=== PATIENT | female | born 1965 | race Caucasian/White ===

== ENCOUNTER → 2017-06-09 08:12 | Outpatient (CLI) | payer BC, SELFPAY ==
--- NOTE | 2017-06-09 06:49 | HPBI_ITS ---
MAMMOGRAPHY - BILATERAL SCREENING REASON FOR EXAM: Female, 51 years old. Routine annual screening examination. PERTINENT HISTORY: Non-contributory. TECHNIQUE: Digital bilateral breast edilberto (3D mammographic acquisition) in the CC and MLO projections. 2-D mediolateral oblique (MLO) and craniocaudad (CC) views of both breasts were obtained. CAD: Full Field Digital Mammography with Computer Added Detection was performed. COMPARISON: Comparison is made with prior study dated April 03, 2016 and February 21, 2015. FINDINGS: Breast Composition: There are scattered areas of fibroglandular density. There are no dominant masses or suspicious calcifications. Stable benign-appearing bilateral axillary lymph nodes. No other significant abnormalities are identified. There has been no significant change since the prior study. HPBI/SCREENING MAMM (CAD), BILAT IMPRESSION: Stable bilateral screening mammogram. Yearly follow-up mammogram recommended. (A) ASSESSMENT CATEGORY: BIRADS Category 2: Benign. A letter regarding these results will be sent to the patient by the facility within 30 days. Approximately 10% of breast cancers are not detected by mammography. A normal mammogram should not delay biopsy of a clinically suspicious abnormality. [id number] Electronically Signed: Wilbert Griffin MD at 9:04 EST Tel [phone], Service support ,
== END ==
PROVIDERS: Family Provider Family Medicine; PCP Family Medicine; Visit Provider Obstetrics & Gynecology
DX: Z12.31 Encounter for screening mammogram for malignant neoplasm of breast (principal)
CPT/HCPCS: 77063; 77067

== ENCOUNTER → 2017-09-04 07:12 | Outpatient (CLI) | payer BC, SELFPAY ==
[2017-09-04 08:14] LABS: Absolute Lymphocyte Count 0.83 X10^3/ul (0.83-4.51); Absolute Neutrophil Count 2.5 X10^3/uL (2.0-7.7); Basophil# 0.01 X10^3/uL; Basophil% 0.3 % (0-1); Eosinophil# 0.14 X10^3/uL; Eosinophils% 3.7 % (0-5); Hematocrit 36.1 % (37-47); Hemoglobin 11.7 g/dl (12.0-15.0); Lymphocyte # 0.83 X10^3/ul (4.0); Lymphocyte % 21.7 % (19-41); Mean Corp Hgb Conc 32.4 g/gl (32-36); Mean Corpuscular Hgb 28.5 pg (27.0-32.0); Mean Corpuscular Volume 87.8 fL (81-99); Mean Platelet Vol. 9.9 fl (6.2-12.0); Monocyte# 0.36 X10^3/uL; Monocyte% 9.4 % (0-10); Neutrophil # 2.49 X10^3/uL (2.7-7.7); Neutrophil % 64.9 % (47-70); Platelet Count 142 K/mm3 (150-450); RBC Distribution Width CV 13.4 % (11.6-14.6); RBC Distribution Width SD 43.2 fl (35.1-43.9); Red Blood Count 4.11 M/mm3 (4.2-5.4); White Blood Count 3.8 K/mm3 (4.4-11.0)
[2017-09-04 08:23] LABS: POSITIVE COUNT NO; POSITIVE DIFFERENTIAL NO; POSITIVE MORPHOLOGY NO
[2017-09-04 08:40] LABS: Cholesterol 136 mg/dL (200); Glucose 89 mg/dL (74-106); High Density Lipoprotein 41 mg/dL; Triglycerides 138 mg/dL; Very Low Density Lipoprotein 28 mg/dL (5-40)
== END ==
PROVIDERS: Family Provider Family Medicine; PCP Family Medicine; Visit Provider Family Medicine
DX: D69.6 Thrombocytopenia, unspecified (principal); Z13.1 Encounter for screening for diabetes mellitus; Z13.220 Encounter for screening for lipoid disorders
CPT/HCPCS: 36415; 80061; 82947; 85025

== ENCOUNTER 2018-05-23 09:27 | Emergency (ER) | payer BC, SELFPAY ==
[2018-05-23 09:28] VITALS: BP 135/73; PULSE 66; RESP 18; TEMP 36.6; O2SAT 100; BMI 25.7
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
--- NOTE | 2018-05-23 11:31 | ED.DEP ---
ED Disposition - Plan for ED Patient: Disposition: Home or Assisted Living Instructions: ED Sprain Strain Neck Prescriptions: Cyclobenzaprine [Flexeril] 10 mg PO TID PRN #20 tablet PRN Reason: Muscle Spasm Referrals: William Terry MD [Primary Care Provider] - 5-7 Days
[2018-05-23 11:59] VITALS: RESP 18
== END 2018-05-23 12:16 | disposition home or self-care (01) ==
PROVIDERS: Emergency Provider Emergency Medicine; Family Provider Family Medicine; PCP Family Medicine
DX: M62.838 Other muscle spasm (principal); D68.0 Von Willebrand disease; Z79.899 Other long term (current) drug therapy; V43.52XA Car driver injured in collision with other type car in traffic accident, initial encounter; Y93.I9 Activity, other involving external motion; Y92.410 Unspecified street and highway as the place of occurrence of the external cause; Y99.8 Other external cause status
CPT/HCPCS: 71046; 72040; 99283

== ENCOUNTER → 2018-09-27 | Outpatient (CLI) | payer BC, SELFPAY ==
[2018-09-30 11:49] LABS: HPV Reflexed? NOT INDICATED
== END | disposition home or self-care (01) ==
LOC: LABSPEC 09:07
PROVIDERS: Family Provider Family Medicine; PCP Family Medicine; Visit Provider Obstetrics & Gynecology
DX: Z12.4 Encounter for screening for malignant neoplasm of cervix (principal)
CPT/HCPCS: 88175; G0145

== ENCOUNTER → 2018-10-21 | Outpatient (CLI) | payer BC, SELFPAY ==
--- NOTE | 2018-10-21 08:09 | BI_ITS ---
MAMMOGRAPHY - BILATERAL SCREENING REASON FOR EXAM: Female, 53 years old. Routine annual screening examination. PERTINENT HISTORY: Non-contributory. TECHNIQUE: Digital bilateral breast yaniv (3D mammographic acquisition) in the CC and MLO projections. 2-D mediolateral oblique (MLO) and craniocaudad (CC) views of both breasts were obtained. CAD: Full Field Digital Mammography with Computer Added Detection was performed. COMPARISON: Comparison is made with prior study dated June 09, 2017 and April 03, 2016. FINDINGS: Breast Composition: There are scattered areas of fibroglandular density. There are no dominant masses or suspicious calcifications. No other significant abnormalities are identified. There has been no significant change since the prior study. BI/SCREEN MAMM (CAD) W/YANIV BILAT IMPRESSION: Stable bilateral screening mammogram. Yearly follow-up mammogram recommended. (A) ASSESSMENT CATEGORY: BIRADS Category 1: Negative. A letter regarding these results will be sent to the patient by the facility within 30 days. Approximately 10% of breast cancers are not detected by mammography. A normal mammogram should not delay biopsy of a clinically suspicious abnormality. [id number] Electronically Signed: Wilbert Griffin, at 9:54 EDT , Service support ,
== END | disposition home or self-care (01) ==
LOC: OPBI 08:06
PROVIDERS: Family Provider Family Medicine; PCP Family Medicine; Referring Provider Obstetrics & Gynecology; Visit Provider Obstetrics & Gynecology
DX: Z12.31 Encounter for screening mammogram for malignant neoplasm of breast (principal)
CPT/HCPCS: 77063; 77067

== ENCOUNTER → 2020-01-12 | Outpatient (CLI) | payer BC, SELFPAY ==
--- NOTE | 2020-01-12 07:22 | BI_ITS ---
MAMMOGRAPHY - BILATERAL SCREENING REASON FOR EXAM: Female, 54 years old. Routine annual screening examination. PERTINENT HISTORY: Non-contributory. TECHNIQUE: Digital bilateral breast yaniv (3D mammographic acquisition) in the CC and MLO projections. 2-D mediolateral oblique (MLO) and craniocaudad (CC) views of both breasts were obtained. CAD: Full Field Digital Mammography with Computer Added Detection was performed. COMPARISON: Comparison is made with prior examination dated 10/21/2018 and 06/09/2017. FINDINGS: Breast Composition: There are scattered areas of fibroglandular density. There are no dominant masses or suspicious calcifications. No other significant abnormalities are identified. There has been no significant change since the prior study. BI/SCREEN MAMM (CAD) W/YANIV BILAT IMPRESSION: Stable bilateral screening mammogram. Yearly follow-up mammogram recommended. (A) ASSESSMENT CATEGORY: BIRADS Category 1: Negative. A letter regarding these results will be sent to the patient by the facility within 30 days. Approximately 10% of breast cancers are not detected by mammography. A normal mammogram should not delay biopsy of a clinically suspicious abnormality. [id number] Electronically Signed: Wilbert Griffin, at 13:12 EDT , Service support ,
== END | disposition home or self-care (01) ==
LOC: OPBI 07:20
PROVIDERS: PCP Family Medicine; Referring Provider Student in an Organized Health Care Education/Training Program; Visit Provider Student in an Organized Health Care Education/Training Program
DX: Z12.31 Encounter for screening mammogram for malignant neoplasm of breast (principal)
CPT/HCPCS: 77063; 77067

== ENCOUNTER → 2020-01-19 | Outpatient (CLI) | payer BC, SELFPAY ==
--- NOTE | 2020-01-19 10:45 | CER_PTH ---
PATIENT: NETTIE NIEVES LOC: [facility] U#:[id number] AGE/SX: 54/F ROOM: RE01/19/[address]: Dr. Amber Farr DO : 1965 BED: DIS: 01/19/2020 SPEC #: [id number] RECD: 01/22/20 07:26 STATUS: NGHIA ANNELISE #: [id number] OLEKSANDR: 01/19/20 10:[address]: Amber Farr DEPT: SURGICAL PATHOLOGY RECD BY: Tylor Brambila ENTERED: 01/22/20 07:26 SP TYPE: CERV OTHR DR: Dr. William Terry MD Tissues: Uterine cervix, NOS Procedures: Surgery Specimen Level IV HEADER OPERATION: Removed cervical polyp PRE-OP DIAGNOSIS: Cervical polyp TISSUE SUBMITTED: Cervical polyp MICROSCOPIC DIAGNOSIS Cervical polyp, biopsy: Benign endocervical polyp. AM:armando 01/23/20 MICROSCOPIC DESCRIPTION Slides are reviewed. GROSS DESCRIPTION Received in fixative is one container labeled with the patient's name and designated cervical polyp. The specimen consists of one irregular fragment of light hernandez soft tissue that measures 0.5 x 0.2 x 0.1 cm. The specimen is totally submitted in one cassette. / AM:armando 01/22/20 TC:5 CPT: 87169
== END | disposition home or self-care (01) ==
LOC: LABSPEC 13:03
PROVIDERS: PCP Family Medicine; Visit Provider Student in an Organized Health Care Education/Training Program
DX: N84.1 Polyp of cervix uteri (principal)
CPT/HCPCS: 88305

== ENCOUNTER → 2021-02-07 10:51 | Outpatient (CLI) | payer OTHER, SELFPAY ==
--- NOTE | 2021-02-07 10:57 | RAD_ITS ---
STUDY: X-RAY CHEST REASON FOR EXAM: Female, 55 years old. COVID/ COUGHING TECHNIQUE: PA and lateral views of the chest. COMPARISON: 05/23/2018 FINDINGS: Left and right lower lung patchy opacities. There is no demonstrated pleural abnormality. Normal size heart. Normal mediastinum and lam. Normal visualized pulmonary arteries. Normal visualized aortic arch and descending thoracic aorta. There is no demonstrated abnormality of the visualized soft tissue structures of the upper abdomen. RAD/Chest PA and Lateral IMPRESSION: Bilateral lower lung pneumonia. Electronically Signed: Chin Campos MD at 4:04 EDT Tel , Service support ,
== END ==
PROVIDERS: PCP Family Medicine; Referring Provider Family Medicine; Visit Provider Family Medicine
DX: R91.8 Other nonspecific abnormal finding of lung field (principal); R07.89 Other chest pain
CPT/HCPCS: 71046

== ENCOUNTER → 2021-02-13 12:41 | Outpatient (CLI) | payer OTHER, SELFPAY ==
[2021-02-20 16:31] LABS: HPV APTIMA, High Risk Negative (Negative)
== END ==
PROVIDERS: PCP Family Medicine; Visit Provider Student in an Organized Health Care Education/Training Program
DX: Z12.4 Encounter for screening for malignant neoplasm of cervix (principal)
CPT/HCPCS: 87624; 88175; G0145

== ENCOUNTER → 2021-03-21 09:16 | Outpatient (CLI) | payer OTHER, SELFPAY ==
--- NOTE | 2021-03-21 09:18 | RAD_ITS ---
STUDY: X-RAY CHEST REASON FOR EXAM: Female, 55 years old. BILATERAL PNEUMONIA TECHNIQUE: PA and lateral views of the chest. COMPARISON: 02/07/2021 FINDINGS: The lungs are clear and expanded. There is no demonstrated pleural abnormality. Normal size heart. Normal mediastinum and lam. Normal visualized pulmonary arteries. Normal visualized aortic arch and descending thoracic aorta. Normal visualized thoracic spine. Normal visualized ribs, clavicles, and shoulders. There is no demonstrated abnormality of the visualized soft tissue structures of the upper abdomen. RAD/Chest PA and Lateral IMPRESSION: Resolution of bilateral lower lobe pneumonia seen on prior study. Electronically Signed: Bethel Mckee MD ([place]) at 22:34 EST , Service support ,
== END ==
PROVIDERS: PCP Family Medicine; Referring Provider Family Medicine; Visit Provider Family Medicine
DX: J18.9 Pneumonia, unspecified organism (principal)
CPT/HCPCS: 71046

== ENCOUNTER 2021-06-23 07:11 | Outpatient (CLI) | payer BC, SELFPAY ==
--- NOTE | 2021-06-23 07:15 | BI_ITS ---
MAMMOGRAPHY - BILATERAL SCREENING REASON FOR EXAM: Female, 55 years old. Routine annual screening examination. PERTINENT HISTORY: Non-contributory. TECHNIQUE: Digital bilateral breast yaniv (3D mammographic acquisition) in the CC and MLO projections. 2-D mediolateral oblique (MLO) and craniocaudad (CC) views of both breasts were obtained. CAD: Full Field Digital Mammography with Computer Added Detection was performed. COMPARISON: Comparison is made with prior study of 01/12/2020 and 10/21/2018. FINDINGS: Breast Composition: There are scattered areas of fibroglandular density. There are no dominant masses or suspicious calcifications. Stable small benign appearing bilateral axillary lymph nodes. No other significant abnormalities are identified. There has been no significant change since the prior study. BI/SCRN MAMM (CAD)W/YANIV BILAT IMPRESSION: Stable bilateral screening mammogram. Yearly follow-up mammogram recommended. (A) ASSESSMENT CATEGORY: BIRADS Category 1: Negative. A letter regarding these results will be sent to the patient by the facility within 30 days. Approximately 10% of breast cancers are not detected by mammography. A normal mammogram should not delay biopsy of a clinically suspicious abnormality. [id number] Electronically Signed: Wilbert Griffin MD at 8:10 EST ,
== END 2021-06-23 23:59 | disposition home or self-care (01) ==
LOC: OPBI 07:12
PROVIDERS: PCP Family Medicine; Visit Provider Student in an Organized Health Care Education/Training Program
DX: Z12.31 Encounter for screening mammogram for malignant neoplasm of breast (principal)
CPT/HCPCS: 77063; 77067

== ENCOUNTER → 2021-12-19 | Outpatient (CLI) | payer BC, SELFPAY ==
[2021-12-19 12:09] LABS: Absolute Lymphocyte Count 1.05 X10^3/uL (0.83-4.51); Absolute Neutrophil Count 2.5 X10^3/uL (2.0-7.7); Basophil# 0.02 X10^3/uL; Basophil% 0.5 % (0-1); Eosinophil# 0.09 X10^3/uL; Eosinophils% 2.2 % (0-5); Hematocrit 38.1 % (37-47); Hemoglobin 12.6 g/dL (12.0-15.0); Lymphocyte # 1.05 X10^3/ul (0.83-4.51); Lymphocyte % 26.1 % (19-41); Mean Corp Hgb Conc 33.1 g/dL (32-36); Mean Corpuscular Hgb 29.4 pg (27.0-32.0); Mean Corpuscular Volume 88.8 fL (81-99); Mean Platelet Vol. 10.8 fl (6.2-12.0); Monocyte# 0.33 X10^3/uL; Monocyte% 8.2 % (0-10); NRBC Flagged by Analyzer 0 % (0-5); Neutrophil # 2.52 X10^3/uL (2.7-7.7); Neutrophil % 62.5 % (47-70); Platelet Count 170 K/mm3 (150-450); RBC Distribution Width CV 13.1 % (11.6-14.6); RBC Distribution Width SD 42.2 fl (35.1-43.9); Red Blood Count 4.29 M/mm3 (4.2-5.4)
[2021-12-19 12:58] LABS: ALB/GLOB Ratio 1.2 RATIO (0.9-2.4); AST(SGOT) 22 U/L (15-37); Alanine Aminotransfer ALT/SGPT 31 U/L (13-56); Alkaline Phosphatase 68 U/L (45-117); Anion Gap 8 (5-15); BUN 14 mg/dL (7-18); Chloride 104 mmol/L (98-107); Cholesterol 180 mg/dL (200); Creatinine, Serum 0.78 mg/dL (0.55-1.02); EST Glomerular Filtration Rate 82 mL/min (>60); Est Glom Filt Rate - Afr Amer 99 mL/min (>60); Globulin 3.4 g/dL (2.2-4.2); Glucose 81 mg/dL (74-106); High Density Lipoprotein 48 mg/dL; Potassium 3.9 mmol/L (3.5-5.1); Protein, Total 7.4 g/dL (6.4-8.2); Sodium Level 140 mmol/L (136-145); Triglycerides 125 mg/dL; Very Low Density Lipoprotein 25 mg/dL (5-40)
== END | disposition home or self-care (01) ==
LOC: MTLAB 10:14
PROVIDERS: PCP Family Medicine; Referring Provider Family Medicine; Visit Provider Family Medicine
DX: Z00.00 Encounter for general adult medical examination without abnormal findings (principal); D61.818 Other pancytopenia; E78.5 Hyperlipidemia, unspecified; Z83.3 Family history of diabetes mellitus
CPT/HCPCS: 36415; 80053; 80061; 85025

== ENCOUNTER → 2022-06-29 | Outpatient (CLI) | payer BC, SELFPAY ==
--- NOTE | 2022-06-29 07:28 | BI_ITS ---
MAMMOGRAPHY - BILATERAL SCREENING 3-D TOMOSYNTHESIS REASON FOR EXAM: Female, 56 years old. Routine screening PERTINENT HISTORY: No significant family history. TECHNIQUE: 2-D mammograms and 3-D Tomosynthesis of the breast (s) were performed. CAD was performed. COMPARISON: 06/23/2021, 01/12/2020 FINDINGS: The breast composition is almost entirely fat. Scattered benign calcifications are seen. No dense spiculated masses or suspicious microcalcifications are identified. No architectural distortion is identified. There is no skin thickening or retraction. There has been no significant change since the prior study. BI/SCRN MAMM (CAD)W/YANIV BILAT IMPRESSION: No mammographic signs of malignancy. Routine yearly mammograms recommended. ASSESSMENT CATEGORY: BIRADS Category 1: Negative. A letter regarding these results will be sent to the patient by the facility within 30 days. FOLLOW UP RECOMMENDATION: Yearly follow up mammogram recommended. (A) Approximately 10% of breast cancers are not detected by mammography. A normal mammogram should not delay biopsy of a clinically suspicious abnormality. Electronically Signed: Waqas Hansen MD at 8:57 EDT ,
== END | disposition home or self-care (01) ==
LOC: OPBI 07:25
PROVIDERS: PCP Internal Medicine; Visit Provider Student in an Organized Health Care Education/Training Program
DX: Z12.31 Encounter for screening mammogram for malignant neoplasm of breast (principal)
CPT/HCPCS: 77063; 77067

== ENCOUNTER → 2022-09-15 | Outpatient (CLI) | payer BC, SELFPAY ==
--- NOTE | 2022-09-15 14:26 | BD_ITS ---
STUDY: DUAL ENERGY X-RAY ABSORPTIOMETRY / DXA REASON FOR EXAM: Female, 57 years old. 627.8Menopausal postmenopausal BONE DENSITY REASON FOR EXAM TECHNIQUE: Bone Mineral Density (BMD) measurements of lumbar spine and bilateral hips were obtained. COMPARISON: None. FINDINGS: Lumbar Spine (L1-L4): g/cm2 (0.847) / T-score (-1.8) / Z-score (-0.7) Findings are suggestive of osteopenia with a moderate fracture risk. Left Femur Total: g/cm2 (0.705) / T-score (-1.9) / Z-score (-1.2) Left Femoral Neck: g/cm2 (0.642) / T-score (-1.9) / Z-score (-0.8) Right Femur Total: g/cm2 (0.758) / T-score (-1.5) / Z-score (-0.8) Right Femoral Neck: g/cm2 (0.645) / T-score (-1.8) / Z-score (-0.7) BD/Dexa Bone Density Study IMPRESSION: The patient is considered osteopenic as outlined below according to World Robert Organization (WHO) criteria with a moderate fracture risk. Reference Information: The T-score is the number of standard deviations above or below the standard which is normal for young adults at their peak bone mineral density. The World Health Organization (WHO) interprets the T-scores as follows: Above -1 Normal bone density Between -1 and -2.5 Osteopenia Equal to / or below -2.5 Osteoporosis As a practical clinical guideline, osteopenia may be graded as follows: Mild -1 through -1.5 Moderate -1.6 through -2.0 Severe -2.1 through -2.4 The Z-score is the number of standard deviations above or below age-matched controls. A Z-score of less than -1.5 would be considered abnormal. References: 1. NIH Osteoporosis and Related Bone Diseases www osteo.org 2. International Society for Clinical Densitometry www iscd.org 3. National Osteoporosis Foundation www nof.org Electronically Signed: Wilbert Griffin MD at 9:09 EDT ,
== END | disposition home or self-care (01) ==
LOC: OPBD 14:19
PROVIDERS: PCP Internal Medicine; Referring Provider Internal Medicine; Visit Provider Internal Medicine
DX: Z78.0 Asymptomatic menopausal state (principal)
CPT/HCPCS: 77080

== ENCOUNTER → 2022-12-26 | Outpatient (CLI) | payer BC, SELFPAY ==
--- NOTE | 2022-12-26 09:07 | RAD_ITS ---
EXAM: XR CHEST, 2 VIEWS CLINICAL INDICATION: CHEST PAIN TECHNIQUE: Frontal and lateral views of the chest. COMPARISON: 03/21/2021. FINDINGS: LUNGS AND PLEURAL SPACES: Unremarkable. No consolidation or edema. No pneumothorax. No effusion. HEART: Unremarkable. Cardiac silhouette not enlarged. MEDIASTINUM: Central airways and mediastinal contour are unremarkable. BONES/JOINTS: Unremarkable. SOFT TISSUES: Unremarkable. RAD/Chest PA and Lateral IMPRESSION: No radiographic evidence of acute cardiopulmonary disease and unchanged when compared to 03/21/2021. Electronically Signed: Hunter Rodriguez MD at 9:19 EDT ,
== END | disposition home or self-care (01) ==
LOC: RAD 09:04
PROVIDERS: PCP Internal Medicine; Referring Provider Internal Medicine; Visit Provider Internal Medicine
DX: R07.89 Other chest pain (principal)
CPT/HCPCS: 71046

== ENCOUNTER → 2023-09-21 | Outpatient (CLI) | payer BC, SELFPAY ==
--- NOTE | 2023-09-21 12:27 | BI_ITS ---
MAMMOGRAPHY - BILATERAL SCREENING REASON FOR EXAM: Female, 58 years old. Routine annual screening examination. PERTINENT HISTORY: Non-contributory. TECHNIQUE: Digital bilateral breast yaniv (3D mammographic acquisition) in the CC and MLO projections. 2-D mediolateral oblique (MLO) and craniocaudad (CC) views of both breasts were obtained. CAD: Full Field Digital Mammography with Computer Added Detection was performed. COMPARISON: Comparison is made with prior study dated June 29, 2022 and June 23, 2021. FINDINGS: Breast Composition: There are scattered areas of fibroglandular density. There are no dominant masses or suspicious calcifications. Stable bilateral fat-containing axillary lymph nodes. No other significant abnormalities are identified. There has been no significant change since the prior study. BI/SCRN MAMM (CAD)W/YANIV BILAT IMPRESSION: Stable bilateral screening mammogram. Yearly follow-up mammogram recommended. (A) ASSESSMENT CATEGORY: BIRADS Category 2: Benign. A letter regarding these results will be sent to the patient by the facility within 30 days. Approximately 10% of breast cancers are not detected by mammography. A normal mammogram should not delay biopsy of a clinically suspicious abnormality. [id number] Electronically Signed: Wilbert Griffin MD at 13:18 EDT ,
== END | disposition home or self-care (01) ==
LOC: OPBI 12:27
PROVIDERS: PCP Internal Medicine; Referring Provider Internal Medicine; Visit Provider Internal Medicine
DX: Z12.31 Encounter for screening mammogram for malignant neoplasm of breast (principal)
CPT/HCPCS: 77063; 77067

== ENCOUNTER → 2024-10-03 | Outpatient (CLI) | payer BC, SELFPAY ==
--- NOTE | 2024-10-03 07:00 | BI_ITS ---
EXAM: SCRN MAMM (CAD)W/YANIV BILAT DATE: 10/03/2024 CLINICAL HISTORY: F, Age 59 y/o , MALIGNANT NEOPLASM OF BREAST No family history. BREAST CANCER RISK ASSESSMENT: Not assessed. TECHNIQUE: Bilateral screening digital breast tomosynthesis with 2D and 3D images. Computer aided detection. COMPARISON: Prior exam(s) dated September 21, 2023.. FINDINGS: TISSUE DENSITY: The breast tissue is composed of scattered areas of fibroglandular density. Bilateral Breast Mammographic Findings: No significant masses, calcifications or other abnormalities are identified. No suspicious masses, areas of developing architectural distortion, or suspicious calcifications. There has been no significant interval change. BI/SCRN MAMM (CAD)W/YANIV BILAT IMPRESSION: Stable examination. OVERALL FINAL ASSESSMENT BI-RADS 1: NEGATIVE. RECOMMEND ANNUAL MAMMOGRAPHIC SCREENING. RECOMMENDATION: Routine annual follow-up in 1 Year A letter with findings and recommendations will be mailed to the patient. Reading Location: [place] [id number]
--- OUTSIDE RECORDS SUMMARY | 2024-10-03 07:01 | XMS RPT_ITS | CCD ---
Author Organization [facility] Care Team Providers Care Bricklayer Name Role Phone Nayla Porter MD Unavailable Fast DO, Yasmine A Unavailable Fast DO, Yasmine A Unavailable Fatou Lopez Unavailable Unavailable Jaye [employer], Tuyet Unavailable Unavailable Mindy Tyler Unavailable Unavailable Unavailable Slafaisal ZABALAN, Jaja Unavailable Unavailable Nayla Porter MD Attending Unavailable Nayla Porter MD Referring Unavailable Nayla Porter MD Consulting Unavailable Dania Rutherford MA Unavailable Unavailable Unavailable Unavailable Nayla Porter MD Primary Care Provider [phone] NAYLA PORTER Referring Unavailable NAYLA PORTER Primary Care Unavailable Nayla Porter Attending Unavailable Nayla Porter Primary Care Unavailable Nayla Porter Referring Unavailable Nayla Porter Attending Unavailable Nayla Porter Primary Care Unavailable Allergies Allergy Classification Reported Allergen(s) Allergy Type Date of Onset Reaction(s) Facility (20 sources) Penicillins; Translations: [Penicillins] Allergy to substance (finding) 9 Hives [facility] Work Phone: (8 sources) Tetanus immune globulin Drug Allergy [facility] Work Phone: Comment on above: hives (1 source) ALLERGIES NOT ON FILE; Translations: [ALLERGIES NOT ON FILE] Propensity to adverse reactions (disorder) [facility] 2 Repository Medications Current Medications Medication Drug Class(es) Dates Sig (Normalized) Sig (Original) cyclobenzaprine hydrochloride 10 mg oral tablet (2 sources) Muscle Relaxant Start: 05-23-2018 take 10 mg by mouth three times daily Cyclobenzaprine Active 10 MG PO THREE TIMES A DAY May 23, 2018 1:00am travoprost 0.04 mg/ml ophthalmic solution (19 sources) Prostaglandin Analog Start: 05-23-2018 take 1 drop(s) into the eye(s) at bedtime Travoprost (Travatan Z) 1 DROP bottle Active 1 DRP Each Eye AT BEDTIME May 23, 2018 1:00am travoprost (chelsea alkonium) 0.004 % eye drops (ophthalmic (eye)) daily (0.004 %) Active Completed/Discontinued Medications Medication Drug Class(es) Dates Sig (Normalized) Sig (Original) [id number] 200 actuat albuterol 0.09 mg/actuat metered dose inhaler (17 sources) beta2-Adrenergic Agonist Start: 08-27-2008 End: 06-09-2022 Proventil HFA 90 mcg/actuation inhalation HFA Aerosol with Adapter 2 (two) Aerosol Soln qid prn for 0 days Quantity: 1 {Aerosol_Soln} Refills: 3 Ordered: 09-Jun-2022 Tuyet Cee LPN Start : 27-Aug-2008 End : 09-Jun-2022 Inactive Alive Diabetic Multivitamin 120-100 mcg oral tablet (17 sources) take 1 tablet by mouth once daily Alive Diabetic Multivitamin 120-100 mcg oral tablet daily (120-100 mcg) Active bifidobacterium infantis 4 mg oral capsule (17 sources) take 1 mg by mouth once daily Align 4 mg oral capsule daily (4 mg) Active busPIRone hydrochloride 5 mg oral tablet (17 sources) Start: 07-03-2008 End: 06-09-2022 take 1 tablet by mouth twice daily BuSpar 5 mg oral tablet 1 (one) Tablet bid for 0 days Quantity: 60 {Tablet} Refills: 2 Ordered: 09-Jun-2022 Tuyet Cee LPN Start : 03-Jul-2008 End : 09-Jun-2022 Discontinued calcium citrate 1500 mg / cholecalciferol 200 unt oral tablet (5 sources) Vitamin D Start: 10-02-2022 take 1 tablet by mouth twice daily calcium citrate-vitamin D3 315 mg-5 mcg (200 unit) oral tablet 1 Tablet bid for 0 days Quantity: 30 {Tablet} Refills: 0 Ordered: 08-Jan-2023 Sangeeta ENAMORADODania Start : 02-Oct-2022 Active codeine phosphate 2 mg/ml / guaiFENesin 20 mg/ml oral solution (17 sources) Opioid Agonist Start: 06-08-2007 End: 01-30-2008 GUAIATUSSIN AC, 100-10MG/5ML (Oral Syrup) 1 Syrup 1 tsp tid as needed for coug for 0 days Quantity: 6 {Ounce(s)} Refills: 0 Ordered: 08-Jun-2007 Yaa Richard Start : 08-Jun-2007 End : 30-Jan-2008 Inactive Comments: Medication taken as needed. Comment on above: Medication taken as needed. FLUoxetine 20 mg oral tablet (20 sources) Serotonin Reuptake Inhibitor Start: 01-08-2023 take 1 tablet by mouth once daily FLUoxetine 20 mg oral tablet 1 (one) Tablet qd for 0 days Quantity: 30 {Tablet} Refills: 6 Ordered: 08-Jan-2023 Carl ABDULLAHI, Nayla Porter MD, Nayla Dominique Start : 08-Jan-2023 Active Start: 08-21-2022 take 1 tablet by deidra th once daily FLUoxetine 20 mg oral tablet 1 (one) Tablet qd for 0 days Quantity: 30 {Tablet} Refills: 3 Ordered: 21-Aug-2022 Jaja Villa LPN Start : 21-Aug-2022 Active Start: 06-09-2022 take 1 tablet by deidra th once daily FLUoxetine 20 mg oral tablet 1 (one) Tablet qd for 0 days Quantity: 30 {Tablet} Refills: 3 Ordered: 09-Jun-2022 Carl ABDULLAHI, Nayla Porter MD, Nayla Dominique Start : 09-Jun-2022 Active Start: 05-23-2018 take 20 mg by mouth once daily Fluoxetine Active 20 MG PO DAILY May 23, 2018 1:00am Start: 09-24-2006 End: 03-03-2007 take 1 tablet by mouth once daily FLUOXETINE HCL, 20MG (Oral Tablet) 1 Tablet qd for 0 days Quantity: 30 {Tablet} Refills: 3 Ordered: 24-Sep-2006 Yaa Richard Start : 24-Sep-2006 End : 03-Mar-2007 Discontinued inositol 100 mg / niacin 400 mg oral capsule (17 sources) Nicotinic Acid Start: 01-25-2007 End: 01-30-2008 take 1 capsule by mouth once daily at bedtime NIACIN FLUSH FREE, 500MG (Oral Capsule) 1 (one) Capsule qhs / HS for 0 days Refills: 0 Ordered: 25-Jan-2007 Yaa Richard Start : 25-Jan-2007 End : 30-Jan-2008 Inactive lansoprazole 30 mg delayed release oral capsule (17 sources) Proton Pump Inhibitor Start: 11-24-2006 End: 01-30-2008 take 1 capsule by mouth once daily PREVACID, 30MG (Oral Capsule Delayed Release) 1 (one) Capsule DR qd for 0 days Refills: 0 Ordered: 24-Nov-2006 Yaa Richard Start : 24-Nov-2006 End : 30-Jan-2008 Inactive latanoprost 0.05 mg/ml ophthalmic solution (17 sources) Prostaglandin Analog End: 06-09-2022 take 2.5 mL into the eye(s) at bedtime Xalatan 0.005 % ophthalmic (eye) drops 2.5ml. each eye at bedtime for 0 days Refills: 0 Ordered: 09-Jun-2022 Tuyet Cee LPN End : 09-Jun-2022 Inactive levoFLOXacin 500 mg oral tablet (17 sources) Quinolone Antimicrobial Start: 06-08-2007 End: 09-30-2007 take 1 tablet by mouth once daily LEVAQUIN, 500MG (Oral Tablet) 1 Tablet daily for 10 days Quantity: 10 {Tablet} Refills: 0 Ordered: 08-Jun-2007 Yaa Richard Start : 08-Jun-2007 End : 30-Sep-2007 Inactive methylPREDNISolone 4 mg oral tablet (3 sources) Corticosteroid Start: 01-08-2023 take 1 tablet by mouth once Medrol (Kings) 4 mg oral Tablet, Dose Pack 1 (one) tablet as directed per instructions for 0 days Quantity: 1 {Packet} Refills: 0 Ordered: 08-Jan-2023 Carl ABDULLAHI, Nayla Porter MD, Nayla Dominique Start : 08-Jan-2023 Active metroNIDAZOLE 0.01 mg/mg topical gel (17 sources) Nitroimidazole Antimicrobial End: 01-25-2007 METROGEL, 1% (External Gel) 1 QD for 0 days Refills: 0 Ordered: 30-Jan-2008 Yaa Richard End : 25-Jan-2007 Discontinued mometasone furoate 0.05 mg/actuat metered dose nasal spray (17 sources) Corticosteroid Start: 04-02-2009 End: 06-09-2022 Nasonex 50 mcg/actuation intranasal spray, non-aerosol 2 (two) Suspension qd for 0 days Refills: 0 Ordered: 09-Jun-2022 Tuyet Cee LPN Start : 02-Apr-2009 End : 09-Jun-2022 Discontinued montelukast 10 mg oral tablet (17 sources) Leukotriene Receptor Antagonist Start: 03-03-2007 End: 01-30-2008 take 1 tablet by mouth once daily SINGULAIR, 10MG (Oral Tablet) Tablet QD for 0 days Refills: 0 Ordered: 30-Jan-2008 Yaa Richard Start : 03-Mar-2007 End : 30-Jan-2008 Inactive Multi Vitamin 9 mg iron/15 mL oral liquid (17 sources) End: 06-09-2022 Multi Vitamin 9 mg iron/15 mL oral liquid for 0 days Refills: 0 Ordered: 09-Jun-2022 Tuyet Cee LPN End : 09-Jun-2022 Inactive oseltamivir 75 mg oral capsule (17 sources) Neuraminidase Inhibitor Start: 06-08-2007 End: 09-30-2007 take 1 capsule by mouth twice daily TAMIFLU, 75MG (Oral Capsule) 1 (one) Capsule bid for 5 days Quantity: 10 {Capsule} Refills: 0 Ordered: 08-Jun-2007 Yaa Richard Start : 08-Jun-2007 End : 30-Sep-2007 Inactive triamcinolone acetonide 0.055 mg/actuat metered dose nasal spray (17 sources) Corticosteroid Start: 01-25-2007 End: 01-30-2008 NASACORT AQ, 55MCG/ACT (Nasal Aerosol Solution) 2 (two) Aerosol Soln qd for 0 days Refills: 0 Ordered: 25-Jan-2007 Yaa Richard Start : 25-Jan-2007 End : 30-Jan-2008 Inactive Problems Active Problems Problem Classification Problem Date Documented Da te Episodic/Chronic Abdominal pain (20 sources) Abdominal pain, generalized; Translations: [Abdominal Pain,General] Resolved: 10-16-2008 10-16-2008 Episodic Comment on above: chronic stable-ruth ann nue present regimen improved Anxiety disorders (20 sources) Anxiety; Translations: [Anxiety] 08-27-2008 Chronic Asthma (20 sources) Intrinsic asthma with status asthmaticus; Translations: [Asthma,Intrinsic] 08-27-2008 Chronic Comment on above: doing much better. Coagulation and hemorrhagic disorders (20 sources) Thrombocytopenia, unspecified; Translations: [Thrombocytopenia, unspecified] 08-27-2008 Chronic Comment on above: chronic stable-ruth ann nue present regimen see Dr. rizvi seen Dr. rizvi ? acquired she did h ave low VWF:AG and some low FVIII not see that had risocetan. had autoimmune low platelets at the timeseen Dr. rizvi in past Diseases of white blood cells (16 sources) Neutropenia; Translations: [LEUKOPENIA, NOS] Resolved: 08-21-2022 08-21-2022 Chronic Esophageal disorders (20 sources) Esophageal reflux; Translations: [Gerd] 11-24-2006 Chronic Comment on above: gave gerd w/s on beh aviour modification and prevacid Glaucoma (20 sources) Glaucoma; Translations: [Glaucoma] 04-02-2009 Chronic Headache; including migraine (20 sources) Headache; Translations: [Headache] 04-02-2009 Episodic Influenza (20 sources) Influenza with other respiratory manifestations; Translations: [Influenza with other respiratory manifestations] Resolved: 09-03-2008 09-03-2008 Episodic Comment on above: Positive A Point of care inoffice Malaise and fatigue (20 sources) Fatigue; Translations: [Fatigue] 04-02-2009 Episodic Comment on above: think about TCa and deeper sleep try mg lactate and vit b consider Dr. kaminski consult for sleep parasomnia Nonspecific chest pain (20 sources) Atypical chest pain; Translations: [Chest pain, atypical] 06-09-2022 Episodic Comment on above: she had stress test years ago negative. do CXR insurance deny stress she had stress test years ago negative. do CXR insurance deny stress test had for lont gtime she had stress test years ago negative. do CXR insurance deny stress test had for lont gtime think costochondritis. can try medrol dose kings use nsaids but withvwb use sparingly Other bone disease and musculoskeletal deformities (10 sources) Osteopenia; Translations: [Osteopenia] 10-02-2022 Episodic Comment on above: she went into menapa use at 51yo no other meds in lifetime or eating disorder. willcheck secondary labs. weight bearing exercise. calcuim with vitm d Other connective tissue disease (17 sources) Fibromyalgia; Translations: [Fibromyalgia] 08-21-2022 Episodic Comment on above: talk about treatment and gabapentin , liment ceams TCA at night Other connective tissue disease (14 sources) Pain in right foot; Translations: [Foot pain, right] 08-21-2022 Episodic Comment on above: at peroneous brevis insertion on proximal 5th metatarsal. she willuse pads, use voltaren. Other ear and sense organ disorders (20 sources) Impacted cerumen; Translations: [Cerumen impaction] 04-02-2009 Episodic Other endocrine disorders (20 sources) Hypoglycemia; Translations: [Hypoglycemia] Resolved: 08-21-2022 04-02-2009 Chronic Comment on above: Reactive Other female genital disorders (10 sources) H/O: infertility - female; Translations: [History of reproductive problem in female] 10-02-2022 Episodic Comment on above: definitely do invita e Other gastrointestinal disorders (20 sources) Irritable bowel syndrome; Translations: [Irritable bowel syndrome] 08-27-2008 Chronic Comment on above: chronic stable-ruth ann nue present regimen Other gastrointestinal disorders (20 sources) Splenomegaly; Translations: [Splenomegaly] 06-09-2022 Episodic Comment on above: see Dr. Rizvi. all neg ative esting BM biopsy negative. followed spleen for along time and no change. stop monitoring. Other inflammatory condition of skin (20 sources) Rosacea; Translations: [Rosacea] 04-02-2009 Chronic Other lower respiratory disease (20 sources) Chronic cough; Translations: [Chronic cough] Resolved: 08-21-2022 06-08-2007 Episodic Comment on above: think asthma Other lower respiratory disease (20 sources) Dyspnea; Translations: [Shortness of breath] Resolved: 08-27-2008 08-27-2008 Episodic Other lower respiratory disease (20 sources) Wheezing; Translations: [Wheezing] Resolved: 09-03-2008 09-03-2008 Episodic Other nutritional; endocrine; and metabolic disorders (20 sources) Lipoprotein deficiencies; Translations: [Low HDL] 08-27-2008 Chronic Other nutritional; endocrine; and metabolic disorders (2 sources) Lipoprotein deficiency disorder; Translations: [Lipoprotein deficiency] Onset: 09-29-2023 4 Chronic Other nutritional; endocrine; and metabolic disorders (1 source) Lipoprotein deficiency; Translations: [Lipoprotein deficiency] Onset: 09-29-2023 Chronic Other nutritional; endocrine; and metabolic disorders (20 sources) Overweight in adulthood with body mass index of 25 or more but less than 30; Translations: [BMI 27.0-27.9,adult] 06-09-2022 Episodic Other nutritional; endocrine; and metabolic disorders (2 sources) Body mass index 25-29 - overweight; Translations: [BMI 28.0-28.9,adult (Renamed from Body mass index (BMI) of 28.0 to 28.9 in adult)] 08-21-2022 Episodic Other screening for suspected conditions (not mental disorders or infectious disease) (20 sources) Nonspecific abnormal results of other specified function study; Translations: [Abnormal CT of Abdomen] Onset: 09-28-2023 Resolved: 03-28-2008 08-27-2008 Episodic Comment on above: recheck 6 mos inflammatory markers good. jtransferrin sat only 18% not think hemochromatosis Other skin disorders (20 sources) Beau's lines; Translations: [Beau's line] 06-09-2022 Episodic Other skin disorders (20 sources) Nail deformity; Translations: [Toenail deformity] 06-09-2022 Episodic Other upper respiratory infections (20 sources) Chronic sinusitis; Translations: [Chronic sinusitis] 01-25-2007 Chronic Other upper respiratory infections (20 sources) Acute sinusitis, unspecified; Translations: [Acute sinusitis, unspecified] Resolved: 09-03-2008 09-03-2008 Episodic Otitis media and related conditions (20 sources) Dysfunction of Eustachian tube; Translations: [Eustachian tube dysfunction] 04-02-2009 Episodic Residual codes; unclassified (20 sources) Nonspecific abnormal findings on radiological and other examination of other sites of body; Translations: [Abnormal CT] 08-27-2008 Episodic Residual codes; unclassified (20 sources) Non-smoker; Translations: [Nonsmoker] 06-09-2022 Episodic Residual codes; unclassified (16 sources) Postmenopausal state; Translations: [Post-menopausal] 08-21-2022 Episodic Residual codes; unclassified (1 source) Asymptomatic menopausal state; Translations: [Asymptomatic menopausal state] Onset: 09-29-2024 Episodic Spondylosis; intervertebral disc disorders; other back problems (20 sources) Backache, unspecified; Translations: [Backache, unspecified] 04-02-2009 Episodic Unclassified (20 sources) OBSESSIVE COMPULSIVE DISORDER, NOS (300.3) 04-02-2009 Unclassified (20 sources) Viral infection (20 sources) Viral exanthem, unspecified; Translations: [Viral exanthem, unspecified] Resolved: 09-03-2008 09-03-2008 Episodic Past or Other Problems Problem Classification Problem Date Documented Da te Episodic/Chronic Unclassified (17 sources) Deliveries (Parity); Translations: [Deliveries (Parity)] 06-09-2022 Comment on above: 1 Unclassified (9 sources) LEUKOPENIA, NOS (288.0) 04-02-2009 Unclassified (17 sources) Pregnancies (); Translations: [Pregnancies ()] 06-09-2022 Comment on above: 1 Results Test Name Value Interpretation Reference Range Facility CT CARDIAC SCORING WO IV CON TRASTon 09-29-2023 CT CARDIAC SCORING WO IV CONTRAST Interpreted By: Jerrica Puente, STUDY: CT CARDIAC SCORING WO IV CONTRAST; 09/29/2023 9:00 am INDICATION: Signs/Symptoms:LOW HDL UNDER 40. COMPARISON: None. ACCESSION NUMBER(S): [id number] ORDERING CLINICIAN: NAYLA PORTER TECHNIQUE: Using prospective ECG gating, CT scan of the coronary arteries was performed without intravenous contrast. Coronary calcium scoring was performed according to the method of Agatston. FINDINGS: The score and distribution of calcium in the coronary arteries is as follows: LM 0 LAD 0 LCx 0 RCA 0 Total 0 The visualized mid/lower ascending thoracic aorta measures 2.9 cm in diameter. The heart is normal in size. No pericardial effusion is present. No gross evidence of mediastinal or hilar lymphadenopathy or masses is identified. The visualized segments of the lungs are normally expanded. The visualized subdiaphragmatic structures appear intact. IMPRESSION: 1. Coronary artery calcium score of 0*. *Coronary artery calcium scoring may be helpful in predicting the risk for future coronary heart disease events. According to the [employer] Clinical Expert Consensus Task Force, such testing provides important prognostic information in patients with more than one coronary heart disease risk factor. The coronary artery calcium score correlates with the annual risk of a non-fatal myocardial infarction or coronary heart disease . Coronary artery score Annual Risk 0-99 0.4% 100-399 1.3% >400 2.4% These three breakpoints correspond to lower, intermediate and high risk states for future coronary events. Such information should be used, along with appropriate clinical judgment, to make decisions regarding the intensity of risk factor management strategies to treat blood lipids and to modify other non-lipid coronary risk factors. Reference: Coral P et al. Circulation. 2007; 115:402-426 MACRO: None Signed by: Jerrica Puente 10/01/2023 4:05 PM Dictation workstation: [id number] [facility] UPEP ([id number])Ordered By: Syst em Core Inspector on 10-05-2022 Albumin Elph (U) [Mass fraction] 38.3 % Normal [facility]; [facility] Work Phone: Comment on above: PERFORMED BY: [place] [id number] Alpha 1 globulin Elph (U) [Mass fraction] 1.9 % Normal [facility]; [facility] Work Phone: Comment on above: PERFORMED BY: [place] [id number] Alpha 2 globulin Elph (U) [Mass fraction] 19.1 % Normal [facility]; [facility] Work Phone: Comment on above: PERFORMED BY: [place] [id number] Beta globulin Elph (U) [Mass fraction] 24.7 % Normal [facility]; [facility] Work Phone: Comment on above: PERFORMED BY: [place] [id number] Gamma globulin Elph (U) [Mass fraction] 15.9 % Normal [facility]; [facility] Work Phone: Comment on above: PERFORMED BY: [place] [id number] Laboratory comment Terrell (Report) [facility] Normal [facility]; [facility] Work Phone: Comment on above: Protein electrophore sis scan will follow via computer, mail, orcourier delivery. PERFORMED BY: [place] [id number] Laboratory report . Normal [facility]; [facility] Work Phone: Comment on above: PERFORMED BY: [place] [id number] Protein (U) [Mass/Vol] 8.6 mg/dL Normal [facility]; [facility] Work Phone: Comment on above: PERFORMED BY: [place] [id number] Protein.monoclona l Elph (U) [Mass fraction] Not Observed Normal [facility]; [facility] Work Phone: Comment on above: PERFORMED BY: [place] [id number] URINE CALCIUM JORDIN TIMED 24 Hour ([id number])Ordered By: Room Server on 10-04-2022 Calcium (24H U) [Mass/Time] 68 {mg/24_hr} Normal 0-320 [facility]; [facility] Work Phone: Comment on above: PERFORMED BY: [place] [id number] Calcium (24H U) [Mass/Vol] 6.2 mg/dL Normal [facility]; [facility] Work Phone: Comment on above: PERFORMED BY: [place] [id number] PARATHORMONE ([id number])Ordered By: Room Server on 10-02-2022 Parathyrin.intact [Mass/Vol] 39 pg/mL Normal 15-65 [facility]; [facility] Work Phone: Comment on above: PATIENT WAS FASTINGP ERFORMED BY: [id number] [place] [id number] PHOSPHORUS ([id number])Ordered By : Room Server on 10-02-2022 Phosphate [Mass/Vol] 3.1 mg/dL Normal 3.0-4.3 [facility]; [facility] Work Phone: Comment on above: PATIENT WAS FASTINGP ERFORMED BY: MISAEL Labcoheidi [id number] [facility] [place] [id number] SPEP ([id number])Ordered By: Syst em Core Inspector on 10-02-2022 Albumin [Mass/Vol] 4.2 g/dL Normal 2.9-4.4 [facility]; [facility] Work Phone: Comment on above: PATIENT WAS FASTINGP ERFORMED BY: MISAEL [facility]co [id number] [address] [facility] [place] [id number] Albumin/Globulin [Mass ratio] 1.6 {ratio} Normal 0.7-1.7 [facility]; [facility] Work Phone: Comment on above: PATIENT WAS FASTINGP ERFORMED BY: MISAEL Labcorie [id number] [facility] [id number] Alpha 1 globulin Elph [Mass/Vol] 0.2 g/dL Normal 0.0-0.4 [facility]; [facility] Work Phone: Comment on above: PATIENT WAS FASTINGP ERFORMED BY: MISAEL [facility] [id number] [address] [facility] [id number] Alpha 2 globulin Elph [Mass/Vol] 0.5 g/dL Normal 0.4-1.0 [facility]; [facility] Work Phone: Comment on above: PATIENT WAS FASTINGP ERFORMED BY: MISAEL Labco [id number] [address] [facility] [id number] Beta globulin Elph [Mass/Vol] 1.0 g/dL Normal 0.7-1.3 [facility]; [facility] Work Phone: Comment on above: PATIENT WAS FASTINGP ERFORMED BY: MISAEL Labco [id number] [facility] [id number] Gamma globulin Elph [Mass/Vol] 1.0 g/dL Normal 0.4-1.8 [facility]; [facility] Work Phone: Comment on above: PATIENT WAS FASTINGP ERFORMED BY: [facility] [id number] [address] [place] [id number] Globulin (S) [Mass/Vol] 2.6 g/dL Normal 2.2-3.9 [facility]; [facility] Work Phone: Comment on above: PATIENT WAS FASTINGP ERFORMED BY: [facility] [id number] [address] RoadD[address] [place] [id number] Laboratory comment Terrell (Report) [facility] Normal [facility]; [facility] Work Phone: Comment on above: Protein electrophore sis scan will follow via computer, mail, orcourier delivery. PATIENT WAS FASTINGP ERFORMED BY: [facility] [id number] [address] RoadD[address] [place] [id number] Laboratory report . Normal Compre[facility]; [facility] Work Phone: Comment on above: PATIENT WAS FASTINGP ERFORMED BY: [facility] [id number] [address] [facility] [place] [id number] Protein [Mass/Vol] 6.8 g/dL Normal 6.0-8.5 [facility]; [facility] Work Phone: Comment on above: PATIENT WAS FASTINGP ERFORMED BY: [facility] [id number] [address] RoadD[address] [place] [id number] Protein.monoclona l Elph [Mass/Vol] Not Observed Normal [facility]; [facility] Work Phone: Comment on above: PATIENT WAS FASTINGP ERFORMED BY: [facility] [id number] [address] [facility] [place] [id number] C-REACT PROT HIGH SENS(hsCRP ) ([id number])Ordered By: Room Server on 09-23-2022 CRP High sensitivity method [Mass/Vol] 2.23 mg/L Normal 0.00-3.00 [facility]; [facility] Work Phone: Comment on above: Relative Risk for Fu ture Cardiovascular Event Low <1.00 Average 1.00 - 3.00 High >3.00 PATIENT NOT FASTINGP ERFORMED BY: [facility] [id number]Dublin [place] [id number] Ferritin ([id number])Ordered By: Room Server on 09-23-2022 Ferritin [Mass/Vol] 192 ng/mL Abnormal 15-150 [facility]; [facility] Work Phone: Comment on above: PATIENT NOT FASTINGP ERFORMED BY: CB [facility] [id number] [address] RoadDublin [place] [id number] Iron Binding Capacity (TIBC) ([id number])Ordered By: Room Server on 09-23-2022 Iron [Mass/Vol] 50 ug/dL Normal 27-159 [facility]; [facility] Work Phone: Comment on above: PATIENT NOT FASTINGP ERFORMED BY: CB [facility] [id number] [address]Dublin [place] [id number] Iron binding capacity [Mass/Vol] 272 ug/dL Normal 250-450 [facility]; [facility] Work Phone: Comment on above: PATIENT NOT FASTINGP ERFORMED BY: CB [facility] [id number] [address]Dublin [place] [id number] Iron binding capacity.unsatura french [Mass/Vol] 222 ug/dL Normal 131-425 [facility]; [facility] Work Phone: Comment on above: PATIENT NOT FASTINGP ERFORMED BY: CB [facility] [id number]Dublin [place] [id number] Iron saturation [Mass fraction] 18 % Normal 15-55 [facility]; [facility] Work Phone: Comment on above: PATIENT NOT FASTINGP ERFORMED BY: CB [facility] [id number] RoadDublin [place] [id number] Sed Rate Erythrocyte (42550) Ordered By: Room Server on 09-23-2022 ESR (Bld) [Velocity] 7 mm/h Normal 0-40 [facility]; [facility] Work Phone: Comment on above: PATIENT NOT FASTINGP ERFORMED BY: CB [facility] [id number] [address]Dublin [place] [id number] FERRITIN ([id number])Ordered By: Room Server on 08-14-2022 Ferritin [Mass/Vol] 196 ng/mL Abnormal 15-150 [facility]; [facility] Work Phone: Comment on above: Test(s) 282947-Vepit in B6; 319680-Hatw, Plasma or Serumwas developed and its performance characteristics determinedby [employer]. It has not been cleared or approved by the Foodand Drug Administration.PATIENT WAS FASTINGPERFORMED BY: [employer] [id number] BY: [facility] [id number] Vitamin B6, Plasma ([id number])Or dered By: Room Server on 08-14-2022 Pyridoxine [Mass/Vol] 37.5 ug/L Normal 3.4-65.2 [facility]; [facility] Work Phone: Comment on above: Deficiency: <3.4 Mar ginal: 3.4 - 5.1 Adequate: >5.1 Test(s) 278506-Hgrkw in B6; 549417-Ubcr, Plasma or Serumwas developed and its performance characteristics determinedby [employer]. It has not been cleared or approved by the Foodand Drug Administration.PATIENT WAS FASTINGPERFORMED BY: [address] [id number] BY: G[employer]ING[employer]70 [facility] [id number] ZINC, BLOOD (60380)Ordered B y: Room Server on 08-14-2022 Zinc [Mass/Vol] 67 ug/dL Normal 44-115 [facility]; [facility] Work Phone: Comment on above: Detection Limit = 5 Test(s) 097600-Rales in B6; 819065-Xnwc, Plasma or Serumwas developed and its performance characteristics determinedby [employer]. It has not been cleared or approved by the Foodand Drug Administration.PATIENT WAS FASTINGPERFORMED BY: [address]s[employer] [id number] BY: GIVINGtra[employer]70 [facility] [id number] Thin prep Pap (80761) (no ST D testing)Ordered By: Yaa Richard on 01-30-2008 Microscopic observation Other stain Nom (Unsp spec) . Normal [facility]; [facility] Work Phone: Comment on above: Source.............C ervical;EndocervicalLMP / Prev Treat...MTP=[id number]. of containers..01 CYTYC Thin Prep VialPATIENT NOT FASTINGClinical Information: [id number] PERFORMED BY: [employer] [address] [id number] Pathology report final diagnosis Narrative SPRCS Normal [facility]; [facility] Work Phone: Comment on above: NEGATIVE FOR INTRAEP ITHELIAL LESION AND MALIGNANCY.REACTIVE CELLULAR CHANGES AND/OR REPAIR ARE PRESENT.Satisfactory for evaluation. Endocervical and/or squamous metaplasticcells (endocervical component) are present.V72.31 ; Routine gynecological examinationPati Murillo, Slide Fastener Repairer (ASCP)Vika Wetzel MD, Pathologist Source.............C ervical;EndocervicalLMP / Prev Treat...WPD=[id number]. of containers..01 CYTYC Thin Prep VialPATIENT NOT FASTINGClinical Information: [id number] PERFORMED BY: [employer] [address] [id number] Thin prep Pap (82157) (no STD testing) PAPSMR Normal [facility]; [facility] Work Phone: Comment on above: The Pap smear is a s creening test designed to aid in the detection ofpremalignant and malignant conditions of the uterine cervix. It is not adiagnostic procedure and should not be used as the sole means of detectingcervical cancer. Both false-positive and false-negative reports do occur. .The HPV DNA reflex criteria were not met with this specimen resulttherefore, no HPV testing was performed. . Source.............C ervical;EndocervicalLMP / Prev Treat...SIP=[id number]. of containers..01 CYTYC Thin Prep VialPATIENT NOT FASTINGClinical Information: [id number] PERFORMED BY: [employer] [place] [id number] Vital Signs Date Time Vital Sign Value Performing Clinician Facility 01-08-2023 08:02-0400 Diastolic blood pressure 72 mm[Hg] Nayla Porter MD Work Phone: [facility]; [facility] Work Phone: Comment on above: Patient Position: Sitting; Cuff Location : Left Arm; Cuff Size: Standard 01-08-2023 08:02-0400 Systolic blood pressure 115 mm[Hg] Nayla Porter MD Work Phone: [facility]; [facility] Work Phone: Comment on above: Patient Position: Sitting; Cuff Location : Left Arm; Cuff Size: Standard 01-08-2023 07:08-0400 Body height 163.19 cm Dania Rutherford MA [facility]; [facility] Work Phone: 01-08-2023 07:08-0400 Body mass index (BMI) [Ratio] 27.31 kg/m2 Dania Rutherford MA [facility]; [facility] Work Phone: 01-08-2023 07:08-0400 Body surface area Derived from formula 1.79 m2 Dania Rutherford MA [facility]; [facility] Work Phone: 01-08-2023 07:08-0400 Body temperature 99.1 [degF] Dania Rutherford MA [facility]; [facility] Work Phone: 01-08-2023 07:08-0400 Body weight 72.75 kg Dania Rutherford MA [facility]; [facility] Work Phone: 01-08-2023 07:08-0400 Diastolic blood pressure 82 mm[Hg] Dania Rutherford MA [facility]; [facility] Work Phone: Comment on above: Patient Position: Sitting; Cuff Location : Left Arm; Cuff Size: Standard 01-08-2023 07:08-0400 Heart rate 80 /min Dania Rutherford MA [facility]; [facility] Work Phone: Comment on above: Pattern: Regular 01-08-2023 07:08-0400 SaO2% (BldA) [Mass fraction] 98 % Dania Rutherford MA [facility]; [facility] Work Phone: Comment on above: Room air 01-08-2023 07:08-0400 Systolic blood pressure 130 mm[Hg] Dania Rutherford MA [facility]; [facility] Work Phone: Comment on above: Patient Position: Sitting; Cuff Location : Left Arm; Cuff Size: Standard 10-02-2022 06:58-0400 Body height 163.19 cm Tuyet Cee LPN [facility]; [facility] Work Phone: 10-02-2022 06:58-0400 Body mass index (BMI) [Ratio] 27.31 kg/m2 Tuyet Cee LPN [facility]; [facility] Work Phone: 10-02-2022 06:58-0400 Body surface area Derived from formula 1.79 m2 Tuyet Cee LPN [facility]; [facility] Work Phone: 10-02-2022 06:58-0400 Body temperature 98.3 [degF] Tuyet Cee LPN [facility]; [facility] Work Phone: 10-02-2022 06:58-0400 Body weight 72.75 kg Tuyet Cee LPN [facility]; [facility] Work Phone: 10-02-2022 06:58-0400 Diastolic blood pressure 84 mm[Hg] Tuyet Cee LPN [facility]; [facility] Work Phone: Comment on above: Patient Position: Sitting; Cuff Location : Left Arm; Cuff Size: Standard 10-02-2022 06:58-0400 Heart rate 84 /min Tuyet Cee LPN [facility]; [facility] Work Phone: Comment on above: Pattern: Regular 10-02-2022 06:58-0400 Respiratory rate 16 /min Tuyet Cee ANATOLIY [facility]; [facility] Work Phone: Comment on above: Pattern: Unlabored 10-02-2022 06:58-0400 SaO2% (BldA) [Mass fraction] 98 % Tuyet Cee [employer] [facility]; [facility] Work Phone: Comment on above: Room air 10-02-2022 06:58-0400 Systolic blood pressure 112 mm[Hg] Tuyet Cee [employer] [facility]; [facility] Work Phone: Comment on above: Patient Position: Sitting; Cuff Location : Left Arm; Cuff Size: Standard 08-21-2022 07:31-0400 Body height 163.19 cm Jaja Slarb [employer] [facility]; [facility] Work Phone: 08-21-2022 07:31-0400 Body mass index (BMI) [Ratio] 28.1 kg/m2 Jaja Slarb [employer] [facility]; [facility] Work Phone: 08-21-2022 07:31-0400 Body surface area Derived from formula 1.81 m2 Jaja Slarb [employer] [facility]; [facility] Work Phone: 08-21-2022 07:31-0400 Body temperature 97.6 [degF] Jaja Slarb [employer] [facility]; [facility] Work Phone: Comment on above: Method: Temporal 08-21-2022 07:31-0400 Body weight 74.84 kg Jaja Slarb [employer] [facility]; [facility] Work Phone: 08-21-2022 07:31-0400 Diastolic blood pressure 68 mm[Hg] Jaja Slarb [employer] [facility]; [facility] Work Phone: Comment on above: Patient Position: Sitting; Cuff Location : Left Arm; Cuff Size: Standard 08-21-2022 07:31-0400 Heart rate 92 /min Jaja Slarb [employer] [facility]; [facility] Work Phone: Comment on above: Pattern: Regular 08-21-2022 07:31-0400 Respiratory rate 16 /min Jaja Slafaisal COPE [facility]; [facility] Work Phone: Comment on above: Pattern: Unlabored 08-21-2022 07:31-0400 SaO2% (BldA) [Mass fraction] 99 % Jaja Daisy COPE [facility]; [facility] Work Phone: Comment on above: Room air 08-21-2022 07:31-0400 Systolic blood pressure 116 mm[Hg] Jaja Daisy COPE [facility]; [facility] Work Phone: Comment on above: Patient Position: Sitting; Cuff Location : Left Arm; Cuff Size: Standard 06-09-2022 13:46-0500 Body height 163.19 cm Tuyet Cee LPN [facility]; [facility] Work Phone: 06-09-2022 13:46-0500 Body mass index (BMI) [Ratio] 27.97 kg/m2 Tuyet Cee LPN [facility]; [facility] Work Phone: 06-09-2022 13:46-0500 Body surface area Derived from formula 1.8 m2 Tuyet Cee LPN [facility]; [facility] Work Phone: 06-09-2022 13:46-0500 Body temperature 98.3 [degF] Tuyet Cee LPN [facility]; [facility] Work Phone: 06-09-2022 13:46-0500 Body weight 74.5 kg Tuyet Cee LPN [facility]; [facility] Work Phone: 06-09-2022 13:46-0500 Diastolic blood pressure 74 mm[Hg] Tuyet Cee LPN [facility]; [facility] Work Phone: Comment on above: Patient Position: Sitting; Cuff Location : Left Arm; Cuff Size: Standard 06-09-2022 13:46-0500 Heart rate 85 /min Tuyet Cee LPN [facility]; [facility] Work Phone: Comment on above: Pattern: Regular 06-09-2022 13:46-0500 Respiratory rate 16 /min Tuyet Cee ANATOLIY [facility]; [facility] Work Phone: Comment on above: Pattern: Unlabored 06-09-2022 13:46-0500 SaO2% (BldA) [Mass fraction] 98 % Tuyet Cee ANATOLIY [facility]; [facility] Work Phone: Comment on above: Room air 06-09-2022 13:46-0500 Systolic blood pressure 112 mm[Hg] Tuyet Cee ANATOLIY [facility]; [facility] Work Phone: Comment on above: Patient Position: Sitting; Cuff Location : Left Arm; Cuff Size: Standard 04-02-2009 11:41-0500 Body height 0 cm Fatou Alva [facility]; [facility] Work Phone: 04-02-2009 11:41-0500 Body temperature 98.1 [degF] Fatou Lopez [facility]; [facility] Work Phone: Comment on above: Method: Undefined 04-02-2009 11:41-0500 Body weight 0 kg Fatou Lopez [facility]; [facility] Work Phone: 04-02-2009 11:41-0500 Diastolic blood pressure 72 mm[Hg] Fatou Lopez [facility]; [facility] Work Phone: Comment on above: Patient Position: Sitting; Cuff Location : Right Arm; Cuff Size: Standard 04-02-2009 11:41-0500 Head Occipital-frontal circumference 0 cm Fatou Al[facility]; [facility] Work Phone: 04-02-2009 11:41-0500 Heart rate 72 /min Fatou Lopez [facility]; [facility] Work Phone: Comment on above: Pattern: Regular 04-02-2009 11:41-0500 Respiratory rate 16 /min Fatou Lopez [facility]; [facility] Work Phone: Comment on above: Pattern: Undefined 04-02-2009 11:41-0500 Systolic blood pressure 112 mm[Hg] Fatou Mckoymanas [facility]; [facility] Work Phone: Comment on above: Patient Position: Sitting; Cuff Location : Right Arm; Cuff Size: Standard 08-27-2008 08:59-0400 Body height 163.19 cm Fatou John [facility]; [facility] Work Phone: 08-27-2008 08:59-0400 Body mass index (BMI) [Ratio] 24.18 kg/m2 Fatou John [facility]; [facility] Work Phone: 08-27-2008 08:59-0400 Body surface area Derived from formula 1.7 m2 Fatou John [facility]; [facility] Work Phone: 08-27-2008 08:59-0400 Body temperature 99.2 [degF] Fatou John [facility]; [facility] Work Phone: Comment on above: Method: Undefined 08-27-2008 08:59-0400 Body weight 64.41 kg Fatou John [facility]; [facility] Work Phone: 08-27-2008 08:59-0400 Diastolic blood pressure 68 mm[Hg] Fatou John [facility]; [facility] Work Phone: Comment on above: Patient Position: Sitting; Cuff Location : Left Arm; Cuff Size: Standard 08-27-2008 08:59-0400 Head Occipital-frontal circumference 0 cm Fatou John [facility]; [facility] Work Phone: 08-27-2008 08:59-0400 Heart rate 80 /min Fatou John [facility]; [facility] Work Phone: Comment on above: Pattern: Regular 08-27-2008 08:59-0400 Respiratory rate 16 /min Fatou Lopez [facility]; [facility] Work Phone: Comment on above: Pattern: Undefined 08-27-2008 08:59-0400 Systolic blood pressure 114 mm[Hg] Fatou John [facility]; [facility] Work Phone: Comment on above: Patient Position: Sitting; Cuff Location : Left Arm; Cuff Size: Standard 07-03-2008 10:10-0400 Body height 0 cm Fatou John [facility]; [facility] Work Phone: 07-03-2008 10:10-0400 Body temperature 98.3 [degF] Fatou Mckoymanas [facility]; [facility] Work Phone: Comment on above: Method: Undefined 07-03-2008 10:10-0400 Body weight 0 kg Fatou John [facility]; [facility] Work Phone: 07-03-2008 10:10-0400 Diastolic blood pressure 82 mm[Hg] Fatou John [facility]; [facility] Work Phone: Comment on above: Patient Position: Sitting; Cuff Location : Left Arm; Cuff Size: Large 07-03-2008 10:10-0400 Head Occipital-frontal circumference 0 cm Fatou John [facility]; [facility] Work Phone: 07-03-2008 10:10-0400 Heart rate 82 /min Fatou John [facility]; [facility] Work Phone: Comment on above: Pattern: Regular 07-03-2008 10:10-0400 Respiratory rate 16 /min Fatou John [facility]; [facility] Work Phone: Comment on above: Pattern: Undefined 07-03-2008 10:10-0400 Systolic blood pressure 104 mm[Hg] Fatou John [facility]; [facility] Work Phone: Comment on above: Patient Position: Sitting; Cuff Location : Left Arm; Cuff Size: Large 03-28-2008 09:34-0500 Body height 0 cm Fatou Lopez [facility]; [facility] Work Phone: 03-28-2008 09:34-0500 Body temperature 97.5 [degF] Fatou Mckoymichellemohan [facility]; [facility] Work Phone: Comment on above: Method: Undefined 03-28-2008 09:34-0500 Body weight 68.49 kg Fatou Lopez [facility]; [facility] Work Phone: 03-28-2008 09:34-0500 Diastolic blood pressure 54 mm[Hg] Fatou Lopez [facility]; [facility] Work Phone: Comment on above: Patient Position: Sitting; Cuff Location : Left Arm; Cuff Size: Large 03-28-2008 09:34-0500 Head Occipital-frontal circumference 0 cm Fatou Mckoymanas [facility]; [facility] Work Phone: 03-28-2008 09:34-0500 Heart rate 76 /min Fatou Mckoymanas [facility]; [facility] Work Phone: Comment on above: Pattern: Regular 03-28-2008 09:34-0500 Respiratory rate 16 /min Fatou Ulloamohan [facility]; [facility] Work Phone: Comment on above: Pattern: Undefined 03-28-2008 09:34-0500 Systolic blood pressure 102 mm[Hg] Fatou Lopez [facility]; [facility] Work Phone: Comment on above: Patient Position: Sitting; Cuff Location : Left Arm; Cuff Size: Large 02-21-2008 08:49-0500 Body height 0 cm Fatou Mckoymanas [facility]; [facility] Work Phone: 02-21-2008 08:49-0500 Body temperature 97.5 [degF] Fatou Mckoymichellemohan [facility]; [facility] Work Phone: Comment on above: Method: Undefined 02-21-2008 08:49-0500 Body weight 67.59 kg Fatou Mckoymanas [facility]; [facility] Work Phone: 02-21-2008 08:49-0500 Diastolic blood pressure 78 mm[Hg] Fatou John [facility]; [facility] Work Phone: Comment on above: Patient Position: Sitting; Cuff Location : Left Arm; Cuff Size: Standard 02-21-2008 08:49-0500 Head Occipital-frontal circumference 0 cm Fatou Mckoymanas [facility]; [facility] Work Phone: 02-21-2008 08:49-0500 Heart rate 72 /min Fatou John [facility]; [facility] Work Phone: Comment on above: Pattern: Regular 02-21-2008 08:49-0500 Respiratory rate 16 /min Fatou John [facility]; [facility] Work Phone: Comment on above: Pattern: Undefined 02-21-2008 08:49-0500 Systolic blood pressure 116 mm[Hg] Fatou John [facility]; [facility] Work Phone: Comment on above: Patient Position: Sitting; Cuff Location : Left Arm; Cuff Size: Standard 02-10-2008 08:05-0400 Body height 165.1 cm Marcia Jackson RN [facility]; [facility] Work Phone: 02-10-2008 08:05-0400 Body mass index (BMI) [Ratio] 25.3 kg/m2 Marcia Jackson RN [facility]; [facility] Work Phone: 02-10-2008 08:05-0400 Body surface area Derived from formula 1.76 m2 Marcia Jackson RN [facility]; [facility] Work Phone: 02-10-2008 08:05-0400 Body temperature 98.1 [degF] Marcia Jackson RN [facility]; [facility] Work Phone: Comment on above: Method: Oral 02-10-2008 08:05-0400 Body weight 68.98 kg Marcia Jackson RN [facility]; [facility] Work Phone: 02-10-2008 08:05-0400 Diastolic blood pressure 80 mm[Hg] Marcia Jackson RN [facility]; [facility] Work Phone: Comment on above: Patient Position: Sitting; Cuff Location : Right Arm; Cuff Size: Large 02-10-2008 08:05-0400 Head Occipital-frontal circumference 0 cm Marcia Jackson RN [facility]; [facility] Work Phone: 02-10-2008 08:05-0400 Heart rate 60 /min Marcia Jackson RN [facility]; [facility] Work Phone: Comment on above: Pattern: Regular 02-10-2008 08:05-0400 Respiratory rate 18 /min Mracia Jackson RN [facility]; [facility] Work Phone: Comment on above: Pattern: Unlabored 02-10-2008 08:05-0400 Systolic blood pressure 128 mm[Hg] Marcia Jackson RN [facility]; [facility] Work Phone: Comment on above: Patient Position: Sitting; Cuff Location : Right Arm; Cuff Size: Large 01-30-2008 14:27-0400 Body height 165.1 cm Yaa Richard [facility]; [facility] Work Phone: 01-30-2008 14:27-0400 Body mass index (BMI) [Ratio] 25.3 kg/m2 [facility]; [facility] Work Phone: 01-30-2008 14:27-0400 Body surface area Derived from formula 1.76 m2 [facility]; [facility] Work Phone: 01-30-2008 14:27-0400 Body temperature 99 [degF] Yaa Richard [facility]; [facility] Work Phone: Comment on above: Method: Oral 01-30-2008 14:27-0400 Body weight 68.98 kg Yaa [facility]; [facility] Work Phone: 01-30-2008 14:27-0400 Diastolic blood pressure 62 mm[Hg] Yaa [facility]; [facility] Work Phone: Comment on above: Patient Position: Sitting; Cuff Location : Left Arm; Cuff Size: Standard 01-30-2008 14:27-0400 Head Occipital-frontal circumference 0 cm [facility]; [facility] Work Phone: 01-30-2008 14:27-0400 Heart rate 80 /min [facility]; [facility] Work Phone: Comment on above: Pattern: Regular 01-30-2008 14:27-0400 Respiratory rate 18 /min [facility]; [facility] Work Phone: Comment on above: Pattern: Unlabored 01-30-2008 14:27-0400 Systolic blood pressure 120 mm[Hg] [facility]; [facility] Work Phone: Comment on above: Patient Position: Sitting; Cuff Location : Left Arm; Cuff Size: Standard 06-08-2007 08:58-0500 Body height 165.1 cm Iram Cuellominda COPE [facility]; [facility] Work Phone: 06-08-2007 08:58-0500 Body mass index (BMI) [Ratio] 25.01 kg/m2 Iram Dom COPE [facility]; [facility] Work Phone: 06-08-2007 08:58-0500 Body surface area Derived from formula 1.75 m2 Iram Dom COPE [facility]; [facility] Work Phone: 06-08-2007 08:58-0500 Body temperature 101.3 [degF] Iram Fernandes ANATOLIY [facility]; [facility] Work Phone: Comment on above: Method: Oral 06-08-2007 08:58-0500 Body weight 68.18 kg Iram Fernandes ANATOLIY [facility]; [facility] Work Phone: 06-08-2007 08:58-0500 Diastolic blood pressure 78 mm[Hg] Iram Dom COPE [facility]; [facility] Work Phone: Comment on above: Patient Position: Sitting; Cuff Location : Left Arm; Cuff Size: Standard 06-08-2007 08:58-0500 Head Occipital-frontal circumference 0 cm Iramamadeo Fernandes LPN [facility]; [facility] Work Phone: 06-08-2007 08:58-0500 Heart rate 102 /min Iram Fernandes ANATOLIY [facility]; [facility] Work Phone: Comment on above: Pattern: Regular 06-08-2007 08:58-0500 Respiratory rate 19 /min Iram Fernandes ANATOLIY [facility]; [facility] Work Phone: Comment on above: Pattern: Unlabored 06-08-2007 08:58-0500 SaO2% (BldA) [Mass fraction] 98 % Iram Fernandes ANATOLIY [facility]; [facility] Work Phone: Comment on above: Room air 06-08-2007 08:58-0500 Systolic blood pressure 118 mm[Hg] Iram Fernandes ANATOLIY [facility]; [facility] Work Phone: Comment on above: Patient Position: Sitting; Cuff Location : Left Arm; Cuff Size: Standard 03-24-2007 13:39-0500 Body height 0 cm BRENDA Adair LPN [facility]; [facility] Work Phone: 03-24-2007 13:39-0500 Body temperature 98.4 [degF] BRENDATHAO Adair ANATOLIY [facility]; [facility] Work Phone: Comment on above: Method: Oral 03-24-2007 13:39-0500 Body weight 0 kg BRENDA Giovany COPE [facility]; [facility] Work Phone: 03-24-2007 13:39-0500 Diastolic blood pressure 80 mm[Hg] BRENDA Adair LPN [facility]; [facility] Work Phone: Comment on above: Patient Position: Sitting; Cuff Location : Left Arm; Cuff Size: Standard 03-24-2007 13:39-0500 Head Occipital-frontal circumference 0 cm BRENDA Adair LPN [facility]; [facility] Work Phone: 03-24-2007 13:39-0500 Heart rate 80 /min BRENDA Adair LPN [facility]; [facility] Work Phone: Comment on above: Pattern: Regular 03-24-2007 13:39-0500 Respiratory rate 18 /min BRENDA Adair LPN [facility]; [facility] Work Phone: Comment on above: Pattern: Unlabored 03-24-2007 13:39-0500 SaO2% (BldA) [Mass fraction] 99 % BRENDA Adair ANATOLIY [facility]; [facility] Work Phone: Comment on above: Room air 03-24-2007 13:39-0500 Systolic blood pressure 120 mm[Hg] BRENDA Adair ANATOLIY [facility]; [facility] Work Phone: Comment on above: Patient Position: Sitting; Cuff Location : Left Arm; Cuff Size: Standard 03-03-2007 08:20-0500 Body height 0 cm BRENDA Adair ANATOLIY [facility]; [facility] Work Phone: 03-03-2007 08:20-0500 Body temperature 98.8 [degF] BRENDA Adiar ANATOLIY [facility]; [facility] Work Phone: Comment on above: Method: Oral 03-03-2007 08:20-0500 Body weight 0 kg BRENDA Adair ANATOLIY [facility]; [facility] Work Phone: 03-03-2007 08:20-0500 Diastolic blood pressure 70 mm[Hg] BRENDA Adair ANATOLIY [facility]; [facility] Work Phone: Comment on above: Patient Position: Sitting; Cuff Location : Left Arm; Cuff Size: Standard 03-03-2007 08:20-0500 Head Occipital-frontal circumference 0 cm BRENDATHAO Adair LPN [facility]; [facility] Work Phone: 03-03-2007 08:20-0500 Heart rate 74 /min BRENDA Adair ANATOLIY [facility]; [facility] Work Phone: Comment on above: Pattern: Regular 03-03-2007 08:20-0500 Respiratory rate 18 /min BRENDA Adair ANATOLIY [facility]; [facility] Work Phone: Comment on above: Pattern: Unlabored 03-03-2007 08:20-0500 Systolic blood pressure 104 mm[Hg] BRENDA Giovany ANATOLIY [facility]; [facility] Work Phone: Comment on above: Patient Position: Sitting; Cuff Location : Left Arm; Cuff Size: Standard 01-25-2007 09:45-0400 Body height 165.1 cm [facility]; [facility] Work Phone: 01-25-2007 09:45-0400 Body mass index (BMI) [Ratio] 25.01 kg/m2 [facility]; [facility] Work Phone: 01-25-2007 09:45-0400 Body surface area Derived from formula 1.75 m2 [facility]; [facility] Work Phone: 01-25-2007 09:45-0400 Body temperature 98 [degF] [facility]; [facility] Work Phone: Comment on above: Method: Oral 01-25-2007 09:45-0400 Body weight 68.18 kg [facility]; [facility] Work Phone: 01-25-2007 09:45-0400 Diastolic blood pressure 60 mm[Hg] [facility]; [facility] Work Phone: Comment on above: Patient Position: Sitting; Cuff Location : Left Arm; Cuff Size: Standard 01-25-2007 09:45-0400 Head Occipital-frontal circumference 0 cm [facility]; [facility] Work Phone: 01-25-2007 09:45-0400 Heart rate 88 /min [facility]; [facility] Work Phone: Comment on above: Pattern: Regular 01-25-2007 09:45-0400 Respiratory rate 16 /min [facility]; [facility] Work Phone: Comment on above: Pattern: Unlabored 01-25-2007 09:45-0400 Systolic blood pressure 102 mm[Hg] [facility]; [facility] Work Phone: Comment on above: Patient Position: Sitting; Cuff Location : Left Arm; Cuff Size: Standard 09-24-2006 09:23-0400 Body height 163.83 cm Fatou Lopez [facility]; [facility] Work Phone: 09-24-2006 09:23-0400 Body mass index (BMI) [Ratio] 25.01 kg/m2 Fatou John [facility]; [facility] Work Phone: 09-24-2006 09:23-0400 Body surface area Derived from formula 1.73 m2 Fatou John [facility]; [facility] Work Phone: 09-24-2006 09:23-0400 Body temperature 98.8 [degF] Fatou John [facility]; [facility] Work Phone: Comment on above: Method: Oral 09-24-2006 09:23-0400 Body weight 67.13 kg Fatou John [facility]; [facility] Work Phone: 09-24-2006 09:23-0400 Diastolic blood pressure 60 mm[Hg] Fatou [facility]; [facility] Work Phone: Comment on above: Patient Position: Sitting; Cuff Location : Right Arm; Cuff Size: Standard 09-24-2006 09:23-0400 Head Occipital-frontal circumference 0 cm Fatou [facility]; [facility] Work Phone: 09-24-2006 09:23-0400 Heart rate 84 /min Fatou John [facility]; [facility] Work Phone: Comment on above: Pattern: Regular 09-24-2006 09:23-0400 Respiratory rate 16 /min Fatou [facility]; [facility] Work Phone: Comment on above: Pattern: Unlabored 09-24-2006 09:23-0400 Systolic blood pressure 108 mm[Hg] Fatou Lopez [facility]; [facility] Work Phone: Comment on above: Patient Position: Sitting; Cuff Location : Right Arm; Cuff Size: Standard Encounters Encounter Date Encounter Type Care Provider Facility Start: 10-03-2024 [facility] Start: 10-04-2023 [facility] Facility[facility] Start: 09-29-2023 End: 09-29-2023 Subsequent hospital visit by physician [address] Comment on above: Lipoprotein deficien cy Start: 09-29-2023 End: 09-29-2023 ambulatory NAYLA CEDRIC [facility] Start: 01-08-2023 Review Nayla Bob Work Phone: [facility] Start: 01-08-2023 End: 01-13-2023 Annotation/Addendum Nayla Porter MD Work Phone: [facility] Start: 01-08-2023 End: 01-08-2023 Office outpatient visit 25 minutes Nayla Porter MD Work Phone: [facility] Start: 12-26-2022 End: 12-26-2022 ambulatory [facility] Work Phone: Start: 12-26-2022 End: 12-26-2022 Patient encounter procedure [facility]-Radiology, [facility] Work Phone: Start: 10-02-2022 End: 10-02-2022 Office outpatient visit 25 minutes Nayla Porter MD Work Phone: [facility] Start: 09-15-2022 End: 09-15-2022 Patient encounter procedure [facility]-Outpatient Bone Densitometry Work Phone: Start: 08-21-2022 ambulatory Nayla Porter MD [facility] Internal Med Start: 08-21-2022 End: 08-21-2022 Patient encounter procedure Nayla Porter MD Work Phone: [facility] Start: 08-21-2022 End: 08-21-2022 Patient encounter status Nayla Porter MD Work Phone: [facility] Start: 08-21-2022 Review Nayla Bob Work Phone: [facility] Start: 06-29-2022 End: 06-29-2022 ambulatory [facility] Work Phone: Start: 06-29-2022 End: 06-29-2022 Patient encounter procedure [facility]-Outpatient Breast Imaging Start: 06-25-2022 Review Nayla Bbo Work Phone: [facility] Start: 06-23-2022 End: 06-23-2022 Historical Summary Nayla Porter MD Work Phone: [facility] Start: 06-09-2022 Review Nayla Bob Work Phone: [facility] Start: 06-09-2022 End: 06-09-2022 Office outpatient new 60 minutes Nayla Porter MD Work Phone: [facility] Start: 04-02-2009 End: 04-02-2009 Patient encounter procedure Nayla Porter MD Work Phone: [facility] Start: 08-27-2008 End: 08-27-2008 Patient encounter procedure Nayla Porter MD Work Phone: [facility] Start: 07-03-2008 End: 07-03-2008 Patient encounter procedure Nayla Porter MD Work Phone: [facility] Start: 03-28-2008 End: 03-28-2008 Patient encounter procedure Nayla Porter MD Work Phone: [facility] Start: 02-21-2008 End: 02-21-2008 Patient encounter procedure Nayla Porter MD Work Phone: [facility] Start: 02-10-2008 End: 02-10-2008 Patient encounter procedure Nayla Porter MD Work Phone: [facility] Start: 01-30-2008 End: 01-30-2008 Annotation/Addendum Nayla Porter MD Work Phone: [facility] Start: 01-30-2008 End: 01-30-2008 Patient encounter procedure Nayla Porter MD Work Phone: [facility] Start: 01-30-2008 End: 01-30-2008 Patient encounter procedure Nayla Porter MD Work Phone: [facility] Start: 06-08-2007 End: 06-08-2007 Office outpatient visit 25 minutes Nayla Porter MD Work Phone: [facility] Start: 03-24-2007 End: 03-24-2007 Office outpatient visit 15 minutes Nayla Porter MD Work Phone: [facility] Start: 03-03-2007 End: 03-03-2007 Patient encounter procedure Nayla Porter MD Work Phone: [facility] Start: 01-25-2007 End: 01-25-2007 Office outpatient visit 25 minutes Nayla Porter MD Work Phone: [facility] Start: 11-23-2006 End: 11-24-2006 Patient encounter procedure Nayla Porter MD Work Phone: [facility] Start: 09-24-2006 End: 09-24-2006 Patient encounter procedure Nayla Porter MD Work Phone: [facility] Start: 09-22-2006 End: 09-22-2006 Historical Summary Nayla Porter MD Work Phone: [facility] Start: 05-06-2006 End: 05-06-2006 Historical Summary Nayla Porter MD Work Phone: [facility] End: 10-16-2008 Patient encounter procedure Marcia Jackson RN [facility]; [facility] Work Phone: Patient encounter procedure Nayla Porter MD Work Phone: [facility]; [facility] Work Phone: Patient encounter procedure Tuyet Cee LPN [facility]; [facility] Work Phone: Patient encounter procedure Dania Rutherford MA [facility]; [facility] Work Phone: Patient encounter status Nayla Porter MD Work Phone: [facility]; [facility] Work Phone: Comment on above: 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 Luan harmon Patient encounter status Tuyet Cee LPN [facility]; [facility] Work Phone: Comment on above: pap 03-[address] Luan harmon Patient encounter status Dania Rutherford KELSEA [facility]; [facility] Work Phone: Comment on above: pap 03-[address] Luan harmon Procedures Date Procedure Procedure Detail Performing Clinician Start: 12-26-2022 End: 12-26-2022 Chest PA and Lateral Procedure Note: See Note; NOTES: [facility] Imaging Services [address] [place] [address] Chest PA and Lateral MR#: [id number] Acct: [id number] Name: NETTIE NIEVES Rep #: [id number] : 1965 F 57 From: Hunter Rodriguez MD PCP: Dr. Nayla Porter MD Status: REG CLI Study: Chest PA and Lateral Date of Exam: 12/26/22 Exam# [id number] Ordering Dr: Nayla Porter MD EXAM: XR CHEST, 2 VIEWS CLINICAL INDICATION: CHEST PAIN TECHNIQUE: Frontal and lateral views of the chest. COMPARISON: 03/21/2021. FINDINGS: LUNGS AND PLEURAL SPACES: Unremarkable. No consolidation or edema. No pneumothorax. No effusion. HEART: Unremarkable. Cardiac silhouette not enlarged. MEDIASTINUM: Central airways and mediastinal contour are unremarkable. BONES/JOINTS: Unremarkable. SOFT TISSUES: Unremarkable. RAD/Chest PA and Lateral IMPRESSION: No radiographic evidence of acute cardiopulmonary disease and unchanged when compared to 03/21/2021. Electronically Signed: Hunter Rodriguez MD at 9:19 EDT , CC: Dr. Nayla Porter MD [employer] Applications Analyst: Signed Nayla Porter MD Work Phone: Start: 12-26-2022 Plain chest X-ray Start: 09-15-2022 End: 09-18-2022 Dexa Bone Density Study Procedure Note: See Note; NOTES: [facility] Imaging Services [address] [place] [address] Dexa Bone Density Study MR#: [id number] Acct: [id number] Name: NETTIE NIEVES Rep #: [id number] : 1965 F 57 From: Wilbert crane MD PCP: Dr. Nayla Porter MD Status: REG CLI Study: Dexa Bone Density Study Date of Exam: 09/15/22 Exam# [id number] Ordering Dr: Nayla Porter MD STUDY: DUAL ENERGY X-RAY ABSORPTIOMETRY / DXA REASON FOR EXAM: Female, 57 years old. 627.8Menopausal postmenopausal BONE DENSITY REASON FOR EXAM TECHNIQUE: Bone Mineral Density (BMD) measurements of lumbar spine and bilateral hips were obtained. COMPARISON: None. FINDINGS: Lumbar Spine (L1-L4): g/cm2 (0.847) / T-score (-1.8) / Z-score (-0.7) Findings are suggestive of osteopenia with a moderate fracture risk. Left Femur Total: g/cm2 (0.705) / T-score (-1.9) / Z-score (-1.2) Left Femoral Neck: g/cm2 (0.642) / T-score (-1.9) / Z-score (-0.8) Right Femur Total: g/cm2 (0.758) / T-score (-1.5) / Z-score (-0.8) Right Femoral Neck: g/cm2 (0.645) / T-score (-1.8) / Z-score (-0.7) BD/Dexa Bone Density Study IMPRESSION: The patient is considered osteopenic as outlined below according to World Robert Organization (WHO) criteria with a moderate fracture risk. Reference Information: The T-score is the number of standard deviations above or below the standard which is normal for young adults at their peak bone mineral density. The World Health Organization (WHO) interprets the T-scores as follows: Above -1 Normal bone density Between -1 and -2.5 Osteopenia Equal to / or below -2.5 Osteoporosis As a practical clinical guideline, osteopenia may be graded as follows: Mild -1 through -1.5 Moderate -1.6 through -2.0 Severe -2.1 through -2.4 The Z-score is the number of standard deviations above or below age-matched controls. A Z-score of less than -1.5 would be considered abnormal. References: 1. NIH Osteoporosis and Related Bone Diseases www osteo.org 2. International Society for Clinical Densitometry www iscd.org 3. National Osteoporosis Foundation www nof.org Electronically Signed: Wilbert Griffin MD at 9:09 EDT Reading Location ID and State: [facility] / [place] , Service support , CC: Dr. Nayla Porter MD [employer] Applications Analyst: Signed Nayla Porter MD Work Phone: Start: 09-15-2022 Dual energy X-ray absorptiometry Start: 06-29-2022 Screening mammography Start: 06-29-2022 End: 06-29-2022 SCRN MAMM (CAD)W/YANIV BILAT Procedure Note: See Note; NOTES: [facility] Imaging Services [address] [place] [id number] SCRN MAMM (CAD)W/YANIV BILAT MR#: [id number] Acct: [id number] Name: EZEQUIELNETTIE ANN Rep #: [id number] : 1965 F 56 From: Charles Hansen MD PCP: Dr. Nayla Porter MD Status: REG CL Study: SCRN MAMM (CAD)W/YANIV BILAT Date of Exam: 06/17 07/09 Exam# [id number] Ordering Dr: Amber Farr DO MAMMOGRAPHY - BILATERAL SCREENING 3-D TOMOSYNTHESIS REASON FOR EXAM: Female, 56 years old. Routine screening PERTINENT HISTORY: No significant family history. TECHNIQUE: 2-D mammograms and 3-D Tomosynthesis of the breast (s) were performed. CAD was performed. COMPARISON: 06/23/2021, 01/12/2020 FINDINGS: The breast composition is almost entirely fat. Scattered benign calcifications are seen. No dense spiculated masses or suspicious microcalcifications are identified. No architectural distortion is identified. There is no skin thickening or retraction. There has been no significant change since the prior study. BI/SCRN MAMM (CAD)W/YANIV BILAT IMPRESSION: No mammographic signs of malignancy. Routine yearly mammograms recommended. ASSESSMENT CATEGORY: BIRADS Category 1: Negative. A letter regarding these results will be sent to the patient by the facility within 30 days. FOLLOW UP RECOMMENDATION: Yearly follow up mammogram recommended. (A) Approximately 10% of breast cancers are not detected by mammography. A normal mammogram should not delay biopsy of a clinically suspicious abnormality. Electronically Signed: Waqas Hansen MD at 8:57 EDT Reading Location ID and State: [address] [place] [address] , Service support , CC: Dr. Amber Farr DO; Dr. Nayla Porter MD [employer] Applications Analyst: Signed Nayla Porter MD Work Phone: History of appendectomy Appendectomy Trac y Jaye [employer] History of appendectomy Appendectomy Lori la Venturarb [employer] History of appendectomy Appendectomy Trac y Jaye [employer] History of appendectomy Appendectomy Duane Rutherford MA Plan of Treatment Date Care Activity Detail Author Start: 12-19-2023 Influenza vaccination Influenza Vaccine (Season Ended) [facility] Start: 01-08-2023 Procedure Education Eprescribed prescriptions (G8553) [facility]; [facility] Work Phone: Start: 12-18-2022 COVID-19 Vaccine ( season) COVID-19 Vaccine ( season) [facility] Start: 10-02-2022 Procedure Education Eprescribed prescriptions (G8553) [facility]; [facility] Work Phone: Start: 10-02-2022 Protein electrophoretic fractj&quantj serum [facility]; [facility] Work Phone: Start: 10-02-2022 Calcium urine quantitative timed specimen URINE CALCIUM JORDIN TIMED 24 Hour (41057) [facility]; [facility] Work Phone: Start: 10-02-2022 Assay of parathormone PARATHORMONE (06041) [facility]; [facility] Work Phone: Start: 10-02-2022 Assay of phosphorus inorganic PHOSPHORUS (50916) [facility]; [facility] Work Phone: Start: 08-21-2022 Procedure Education Eprescribed prescriptions (G8553) [facility]; [facility] Work Phone: Start: 08-21-2022 Sedimentation rate rbc non-automated Sed Rate Erythrocyte (34498) [facility]; [facility] Work Phone: Start: 08-21-2022 C-reactive protein high sensitivity C-REACT PROT HIGH SENS(hsCRP) (98708) [facility]; [facility] Work Phone: Start: 08-21-2022 Assay of ferritin Ferritin (73534) [facility]; [facility] Work Phone: Start: 08-21-2022 Iron binding capacity Iron Binding Capacity (TIBC) (17803) [facility]; [facility] Work Phone: Start: 08-21-2022 Assay of iron Iron (83694) [facility]; [facility] Work Phone: Start: 06-09-2022 Assay of ferritin FERRITIN (68175) [facility]; [facility] Work Phone: Start: 06-09-2022 Assay of pyridoxal phosphate Vitamin B6, Plasma (47407) [facility]; [facility] Work Phone: Start: 06-09-2022 Assay of zinc ZINC, BLOOD (24848) [facility]; [facility] Work Phone: Start: 06-09-2022 Procedure Education Eprescribed prescriptions (G8553) [facility]; [facility] Work Phone: Start: 06-14-2018 Zoster Vaccines (2 of 3) Zoster Vaccines (2 of 3) [facility] Start: 05-17-2018 MMR Vaccines (1 of 1 - Standard series) MMR Vaccines (1 of 1 - Standard series) [facility] Start: 08-27-2008 Provider Instructions for Treatment Diet and Exercise [facility]; [facility] Work Phone: Start: 07-03-2008 Provider Instructions for Treatment Antidepressant Usage [facility]; [facility] Work Phone: Start: 07-03-2008 Fibrin dgradj products d-dimer quantitative D-Dimer (57218) [facility]; [facility] Work Phone: Comment on above: stat Start: 07-03-2008 Assay of thyroid stimulating hormone tsh TSH (64372) [facility] Work Phone: Start: 07-03-2008 Comprehensive metabolic panel METABOLIC PANEL, COMPREHENSIVE (52730) [facility]; [facility] Work Phone: Start: 07-03-2008 Blood count manual cell count each CBC WITH MANUAL DIFF (76745) [facility]; [facility] Work Phone: Start: 03-28-2008 Hepatic function panel HEPATIC FUNCTION PANEL (85681) [facility]; [facility] Work Phone: Start: 03-28-2008 Lipid panel LIPID PANEL (21663) [facility]; [facility] Work Phone: Start: 02-21-2008 Sedimentation rate rbc non-automated SED RATE ERYTHROCYTE (29255) [facility]; [facility] Work Phone: Start: 02-21-2008 C-reactive protein C-REACTIVE PROTEIN (83125) [facility]; [facility] Work Phone: Start: 02-21-2008 Rheumatoid factor quantitative RHEUMATOID FACTOR-QUANT (75764) [facility]; [facility] Work Phone: Start: 02-21-2008 Antinuclear antibodies krys KRYS (ANTINUCLEAR ANTIBODY) (93942) [facility]; [facility] Work Phone: Start: 02-21-2008 Lactate dehydrogenase ldh LDH (LD) (LACTATE DEHYDROGENASE) (44712) [facility]; [facility] Work Phone: Start: 02-21-2008 Cyanocobalamin vitamin b-12 VITAMIN B-12 (CYANOCOBALAMIN) (44174) [facility]; [facility] Work Phone: Start: 01-30-2008 Comprehensive metabolic panel METABOLIC PANEL, COMPREHENSIVE (50103) [facility]; [facility] Work Phone: Start: 01-30-2008 Assay of thyroid stimulating hormone tsh TSH (44880) [facility]; [facility] Work Phone: Start: 01-30-2008 Blood count manual cell count each CBC WITH MANUAL DIFF (85882) [facility]; [facility] Work Phone: Start: 01-30-2008 Hepatic function panel HEPATIC FUNCTION PANEL (28217) [facility]; [facility] Work Phone: Start: 01-30-2008 Lipid panel LIPID PANEL (12987) [facility]; [facility] Work Phone: Start: 01-30-2008 Provider Instructions for Treatment [facility]; [facility] Work Phone: Start: 06-08-2007 Provider Instructions for Treatment [facility]; [facility] Work Phone: Start: 06-08-2007 Antibody influenza virus INFLUENZA VIRUS ANTIBDY (67338) [facility]; [facility] Work Phone: Comment on above: IN OFFICE ONLY point of care, POSITIVE Start: 01-25-2007 Provider Instructions for Treatment Cholesterol - Medication Side Effects [facility]; [facility] Work Phone: Start: 01-25-2007 Blood count manual cell count each CBC WITH MANUAL DIFF (36091) [facility]; [facility] Work Phone: Start: 01-25-2007 Hepatic function panel HEPATIC FUNCTION PANEL (94404) [facility]; [facility] Work Phone: Start: 01-25-2007 Lipid panel LIPID PANEL (76184) [facility]; [facility] Work Phone: Start: 09-24-2006 Provider Instructions for Treatment [facility]; [facility] Work Phone: Start: 09-24-2006 Urnls dip stick/tablet rgnt auto w/o microscopy URINALYSIS W/O MICRO (77161) [facility]; [facility] Work Phone: Start: 09-24-2006 Assay of thyroid stimulating hormone tsh TSH (32499) [facility]; [facility] Work Phone: Start: 09-24-2006 Comprehensive metabolic panel METABOLIC PANEL, COMPREHENSIVE (61885) [facility]; [facility] Work Phone: Start: 09-24-2006 Lipid panel LIPID PANEL (76535) [facility]; [facility] Work Phone: Start: 09-24-2006 Blood count manual cell count each CBC WITH MANUAL DIFF (36927) [facility]; [facility] Work Phone: Start: 09-24-2006 Cytp cerv/vag auto thin layer prep mnl screen Thin prep Pap (48415) [facility]; [facility] Work Phone: Start: 2006 Screening for malignant neoplasm of breast Mammogram [facility] Start: 1988 DTaP/Tdap/Td Vaccines (1 - Tdap) DTaP/Tdap/Td Vaccines (1 - Tdap) [facility] Start: 09-03-1987 Screening for malignant neoplasm of cervix [facility] Start: 1985 Hepatitis B Vaccines (1 of 3 - 19+ 3-dose series) Hepatitis B Vaccines (1 of 3 - 19+ 3-dose series) [facility] Start: 1984 Hepatitis C screening Hepatitis C Screening [facility] Start: 1972 Pneumococcal Vaccine: Pediatrics (0 to 5 Years) and At-Risk Patients (6 to 64 Years) (1 of 2 - PCV) Pneumococcal Vaccine: Pediatrics (0 to 5 Years) and At-Risk Patients (6 to 64 Years) (1 of 2 - PCV) [facility] Start: 1966 HIV screening HIV Screening [facility] Start: 1966 Lipid panel Lipid Panel [facility] Start: 1966 Screening for malignant neoplasm of colon [facility] Start: 1966 Yearly Adult Physical Yearly Adult Physical [facility] End: 09-29-2023 CT for calcium scoring WO contrast and CTA W contrast IV Heart and coronary arteries [facility] Service Area Work Phone: Comment on above: Once for 1 Occurrences starting 09/29/19 24 until 09/29/2023 [facility] Work Phone: [facility] Work Phone: [facility] Work Phone: [facility] Work Phone: [facility]; [facility] Work Phone: [facility] Work Phone: [facility] Work Phone: [facility] Work Phone: [facility] Work Phone: [facility] Work Phone: [facility] Work Phone: [facility] Work Phone: [facility]; [facility] Work Phone: Immunizations Immunization Date Immunization Notes Care Provider Megha santoyo 04-19-2018 zoster vaccine, live Nayla bobo MD Work Phone: [facility]; [facility] Work Phone: Comment on above: both doses Payers Date Payer Category Payer Self-pay [id number] 2021 Unknown 2021 Unknown [id number] 2008 Unknown [id number] 1966 Unknown [id number] 1966 Unknown [id number] Unknown [employer] [id number] Unknown [id number] Unknown [facility] [id number] Unknown [id number] Unknown [id number] Social History Date Type Detail Facility Living Situation Living Situation [facility]; [facility] Work Phone: Comment on above: , heterosexua l Customer Service - Michael miller [place] Start: 05-23-2018 [facility] Start: 1965 Sex Assigned At Female [facility] Start: 1966 Sex assigned at Not on file [facility] Work Phone: Gender identity Not on file [facility] Work Phone: Start: 09-19-2023 End: 09-29-2023 Exposure to SARS-CoV-2 (event) Not sure [facility] Clinical Notes Note Date & Type Note Facility Evaluation note No assessment information availa ble [facility] Work Phone: Evaluation note Diagnosis Lipoprotein deficiency Lipoprotein deficiencies documented in this encounter [facility] Work Phone: Instructions* Name Dates Details Patient Instructions Indication:BMI 27.0-27.9,adult Start:09-Jun-2022 Instruction Type:Provider Instructions for Treatment How to Access Health Informa tion Online using Patient Portal and [employer] Apps Indication:BMI 27.0-27.9,adult Start:09-Jun-2022 Instruction Type:Patient Education [facility]; [facility] Work Phone: instructions* Name Dates Details Patient Instructions Indication:BMI 27.0-27.9,adult Start:09-Jun-2022 Instruction Type:Provider Instructions for Treatment How to Access Health Informa tion Online using Patient Portal and [employer] Apps Indication:BMI 27.0-27.9,adult Start:09-Jun-2022 Instruction Type:Patient Education [facility]; [facility] Work Phone: instructions* Name Dates Details Patient Instructions Indication:BMI 27.0-27.9,adult Start:09-Jun-2022 Instruction Type:Provider Instructions for Treatment How to Access Health Informa tion Online using Patient Portal and [employer] Indication:BMI 27.0-27.9,adult Start:09-Jun-2022 Instruction Type:Patient Education [facility]; [facility] Work Phone: instructions* Name Dates Details Patient Instructions Indication:BMI 27.0-27.9,adult Start:09-Jun-2022 Instruction Type:Provider Instructions for Treatment How to Access Health Informa tion Online using Patient Portal and [employer] Indication:BMI 27.0-27.9,adult Start:09-Jun-2022 Instruction Type:Patient Education [facility]; [facility] Work Phone: instructions* Name Dates Details Patient Instructions Indication:Encounter for well adult exam with abnormal findings Start:21-Aug-2022 Instruction Type:Provider Instructions for Treatment How to Access Health Informa tion Online using Patient Portal and [employer] Indication:Encounter for well adult exam with abnormal findings Start:21-Aug-2022 Instruction Type:Patient Education Patient Instructions Indication:BMI 27.0-27.9,adult Start:09-Jun-2022 Instruction Type:Provider Instructions for Treatment How to Access Health Informa tion Online using Patient Portal and [employer] Indication:BMI 27.0-27.9,adult Start:09-Jun-2022 Instruction Type:Patient Education [facility]; [facility] Work Phone: instructions* Name Dates Details Patient Instructions Indication:Encounter for well adult exam with abnormal findings Start:21-Aug-2022 Instruction Type:Provider Instructions for Treatment How to Access Health Informa tion Online using Patient Portal and [employer] Indication:Encounter for well adult exam with abnormal findings Start:21-Aug-2022 Instruction Type:Patient Education Patient Instructions Indication:BMI 27.0-27.9,adult Start:09-Jun-2022 Instruction Type:Provider Instructions for Treatment How to Access Health Informa tion Online using Patient Portal and [employer] Indication:BMI 27.0-27.9,adult Start:09-Jun-2022 Instruction Type:Patient Education [facility]; [facility] Work Phone: instructions* Name Dates Details Patient Instructions Indication:BMI 28.0-28.9,adult (Renamed from Body mass index (BMI) of 28.0 to 28.9 in adult) Start:02-Oct-2022 Instruction Type:Provider Instructions for Treatment How to Access Health Informa tion Online using Patient Portal and [employer] Indication:BMI 28.0-28.9,adult (Renamed from Body mass index (BMI) of 28.0 to 28.9 in adult) Start:02-Oct-2022 Instruction Type:Patient Education Patient Instructions Indication:Encounter for well adult exam with abnormal findings Start:21-Aug-2022 Instruction Type:Provider Instructions for Treatment How to Access Health Informa tion Online using Patient Portal and [employer] Indication:Encounter for well adult exam with abnormal findings Start:21-Aug-2022 Instruction Type:Patient Education Patient Instructions Indication:BMI 27.0-27.9,adult Start:09-Jun-2022 Instruction Type:Provider Instructions for Treatment How to Access Health Informa tion Online using Patient Portal and [employer] Apps Indication:BMI 27.0-27.9,adult Start:09-Jun-2022 Instruction Type:Patient Education [facility]; [facility] Work Phone: [facility]* Name Dates Details Patient Instructions Indication:BMI 28.0-28.9,adult (Renamed from Body mass index (BMI) of 28.0 to 28.9 in adult) Start:08-Jan-2023 Instruction Type:Provider Instructions for Treatment How to Access Health Informa tion Online using Patient Portal and [employer] Apps Indication:BMI 28.0-28.9,adult (Renamed from Body mass index (BMI) of 28.0 to 28.9 in adult) Start:08-Jan-2023 Instruction Type:Patient Education Patient Instructions Indication:BMI 28.0-28.9,adult (Renamed from Body mass index (BMI) of 28.0 to 28.9 in adult) Start:02-Oct-2022 Instruction Type:Provider Instructions for Treatment How to Access Health Informa tion Online using Patient Portal and [employer] Apps Indication:BMI 28.0-28.9,adult (Renamed from Body mass index (BMI) of 28.0 to 28.9 in adult) Start:02-Oct-2022 Instruction Type:Patient Education Patient Instructions Indication:Encounter for well adult exam with abnormal findings Start:21-Aug-2022 Instruction Type:Provider Instructions for Treatment How to Access Health Informa tion Online using Patient Portal and [employer] Apps Indication:Encounter for well adult exam with abnormal findings Start:21-Aug-2022 Instruction Type:Patient Education Patient Instructions Indication:BMI 27.0-27.9,adult Start:09-Jun-2022 Instruction Type:Provider Instructions for Treatment How to Access Health Informa tion Online using Patient Portal and [employer] Apps Indication:BMI 27.0-27.9,adult Start:09-Jun-2022 Instruction Type:Patient Education [facility]; [facility] Work Phone: Instructions* Name Dates Details Patient Instructions Indication:BMI 28.0-28.9,adult (Renamed from Body mass index (BMI) of 28.0 to 28.9 in adult) Start:08-Jan-2023 Instruction Type:Provider Instructions for Treatment How to Access Health Informa tion Online using Patient Portal and [employer] Apps Indication:BMI 28.0-28.9,adult (Renamed from Body mass index (BMI) of 28.0 to 28.9 in adult) Start:08-Jan-2023 Instruction Type:Patient Education Patient Instructions Indication:BMI 28.0-28.9,adult (Renamed from Body mass index (BMI) of 28.0 to 28.9 in adult) Start:02-Oct-2022 Instruction Type:Provider Instructions for Treatment How to Access Health Informa tion Online using Patient Portal and [employer] Apps Indication:BMI 28.0-28.9,adult (Renamed from Body mass index (BMI) of 28.0 to 28.9 in adult) Start:02-Oct-2022 Instruction Type:Patient Education Patient Instructions Indication:Encounter for well adult exam with abnormal findings Start:21-Aug-2022 Instruction Type:Provider Instructions for Treatment How to Access Health Informa tion Online using Patient Portal and [employer] Apps Indication:Encounter for well adult exam with abnormal findings Start:21-Aug-2022 Instruction Type:Patient Education Patient Instructions Indication:BMI 27.0-27.9,adult Start:09-Jun-2022 Instruction Type:Provider Instructions for Treatment How to Access Health Informa tion Online using Patient Portal and [employer] Indication:BMI 27.0-27.9,adult Start:09-Jun-2022 Instruction Type:Patient Education [facility]; [facility] Work Phone: Family History No Family History Records FoundUnknown Family Member Name Dates Details Father Comments:[place], [place] at 74 yo Status:Active Mother Comments:HTN Status:Active paternal aunt Comments:? ASD ?arthymia Status:Active Paternal Grandfather Comments:[place] late 60's Status:Active paternal uncle Comments:[place] at late 60's Status:Active Unknown Family Member Name Dates Details Father Comments:[place], [place] at 74 yo Status:Active Mother Comments:HTN Status:Active paternal aunt Comments:? ASD ?arthymia Status:Active Paternal Grandfather Comments:[place] late 60's Status:Active paternal uncle Comments:AL at late 60's Status:Active Unknown Family Member Name Dates Details Father Comments:[place], [place] at 74 yo Status:Active Mother Comments:HTN Status:Active paternal aunt Comments:? ASD ?arthymia Status:Active Paternal Grandfather Comments:[place] late 60's Status:Active paternal uncle Comments:AL at late 60's Status:Active Unknown Family Member Name Dates Details Father Comments:[place], [place] at 74 yo Status:Active Mother Comments:HTN Status:Active paternal aunt Comments:? ASD ?arthymia Status:Active Paternal Grandfather Comments:[place] late 60's Status:Active paternal uncle Comments:[place] at late 60's Status:Active Unknown Family Member Name Dates Details Brother 1 Comments:healthy Status:Active Father Comments:[place] at 74 yo Status:Active Mother Comments:HTN Status:Active paternal aunt Comments:? ASD ?arthymia Status:Active Paternal Grandfather Comments:[place] late 60's Status:Active paternal uncle Comments:[place] at late 60's Status:Active Unknown Family Member Name Dates Details Brother 1 Comments:healthy Status:Active Father Comments:[place] at 74 yo Status:Active Mother Comments:HTN Status:Active paternal aunt Comments:? ASD ?arthymia Status:Active Paternal Grandfather Comments:[place] late 60's Status:Active paternal uncle Comments:AL at late 60's Status:Active Unknown Family Member Name Dates Details Brother 1 Comments:healthy Status:Active Father Comments:[place] at 74 yo Status:Active maternal side--uterus Status:Active Mother Comments:HTN, uterine cancer Status:Active paternal aunt Comments:? ASD ?arthymia Status:Active Paternal Grandfather Comments:[place] late 60's Status:Active paternal uncle Comments:AL at late 60's Status:Active Unknown Family Member Name Dates Details Brother 1 Comments:healthy Status:Active Father Comments:[place] at 74 yo Status:Active maternal side--uterus Status:Active Mother Comments:HTN, uterine cancer Status:Active paternal aunt Comments:? ASD ?arthymia Status:Active Paternal Grandfather Comments:[place] late 60's Status:Active paternal uncle Comments:[place] at late 60's Status:Active Unknown Family Member Name Dates Details Brother 1 Comments:healthy Status:Active Father Comments:[place] at 74 yo Status:Active maternal side--uterus Status:Active Mother Comments:HTN, uterine cancer Status:Active paternal aunt Comments:? ASD ?arthymia Status:Active Paternal Grandfather Comments:[place] late 60's Status:Active paternal uncle Comments:[place] at late 60's Status:Active Advance Directives No Advanced Directives Records Found Name Dates Details Immunization Registry [place] - Effective on 06/23/2022. Expiration date unspecified Effective:23-Jun-2022 Name Dates Details Immunization Registry [place] - Effective on 06/23/2022. Expiration date unspecified Effective:23-Jun-2022 Advance Directive Response Recorded Date/ Time Living Will No May 23 11:22am Power of Records Tech No May 23, 2018 11:22am Name Dates Details Immunization Registry [place] - Effective on 06/23/2022. Expiration date unspecified Effective:23-Jun-2022 Name Dates Details Immunization Registry [place] - Effective on 06/23/2022. Expiration date unspecified Effective:23-Jun-2022 Name Dates Details Immunization Registry [place] - Effective on 06/23/2022. Expiration date unspecified Effective:23-Jun-2022 Name Dates Details Immunization Registry [place] - Effective on 06/23/2022. Expiration date unspecified Effective:23-Jun-2022 Name Dates Details Immunization Registry [place] - Effective on 06/23/2022. Expiration date unspecified Effective:23-Jun-2022 Chief Complaint and Reason for Visit Chief Complaint SCREENING Chief Complaint POST AMANDA CHEST PAIN Summary Purpose Reason for Referral Specialty Diagnoses / Procedures Referred By Contac t Referred To Contact Radiology Diagnoses Lipoprotein deficiency Procedures CT cardiac scoring wo IV contrast Nayla Porter MD [facility] [place] [address] Referral ID Status Reason Start Date Expiration Date Visits Requested Visits Authorized [id number] Authorized Perform Procedure 09/03/2023 2024 1 1 Additional Source Comments Care Teams (unrecognized sec tion and content) Team Status: Active Member Role Status Dates Dr. William Terry MD Family Provider Active Dr. Nayla Porter MD Primary Care Provider Active Team Status: Inactive Member Role Status Dates Dr. Amber Farr DO Attending Provider Active Dr. Nayla Porter MD Primary Care Provider Active Team Status: Inactive Member Role Status Dates Dr. Nayla Porter MD Primary Care Provi elli, Attending Provider, Referring Provider Active Bricklayer Relationship Specialty Start Date End Date Nayla Porter MD [address] [place] [address] [address] [place] [address] PCP - General Internal Medicine 09/29/23 Goals (unrecognized section and content) Goals may be documented in a n alternate sectionGoals may be documented in an alternate section INFORMATION SOURCE (unrecogn ized section and content) DATE CREATED AUTHOR 08/22/2022 [facility] DATE CREATED AUTHOR AUTHOR'S ORGANIZ ATION 11/06/2023 [facility] DATE CREATED AUTHOR AUTHOR'S ORGANIZ ATION 09/30/[address] [facility] Reason for Visit (unrecogniz ed section and content) Specialty Diagnoses / Procedures Referred By Contac t Referred To Contact Radiology Diagnoses Lipoprotein deficiency Procedures CT cardiac scoring wo IV contrast Nayla Porter MD [address] [place] [address] Referral ID Status Reason Start Date Expiration Date Visits Requested Visits Authorized [id number] Authorized Perform Procedure 09/03/2023 2024 1 1 FOR RECORDS PERTAINING TO PATIENTS WHO ARE OR HAVE BEEN ENROLLED IN A CHEMICAL DEPENDENCY/SUBSTANCEABUSE PROGRAM, SOME INFORMATION MAY BE OMITTED. This clinical summary was aggregated from multiple sources. Caution should be exercised in using it in the provision of clinical care. This summary normalizes information from multiple sources, and as a consequence, information in this document may materially change the coding, format and clinical context of patient data. In addition, data may be omitted in some cases. CLINICAL DECISIONS SHOULD BE BASED ON THE PRIMARY CLINICAL RECORDS. [facility]. provides no warranty or guarantee of the accuracy or completeness of information in this document.
--- NOTE | 2024-10-03 07:04 | BD_ITS ---
PROCEDURE: DEXA BONE DENSITY STUDY 10/03/2024 REASON FOR EXAM: F, age 59 y/o . Postmenopausal. TECHNIQUE: DEXA BONE DENSITY STUDY COMPARISON: Prior study dated September 15, 2022. FINDINGS: BMD and T-SCORES Lumbar spine: 0.845 g/cm2, T-score -1.8 Levels: L1 through L4 Change from prior: Loss of 0.2%. Left femoral neck: 0.687 g/cm2, T-score -1.5 Femoral neck comparison data not recommended for monitoring change. Left total hip: 0.706 g/cm2, T-score -1.9 Change from prior: Improvement of 0.1%. Right femoral neck: 0.671 g/cm2, T-score -1.6 Femoral neck comparison data not recommended for monitoring change. Right total hip: 0.719 g/cm2, T-score -1.8 Change from prior: Loss of 5.2%. The World Health Organization has defined the following categories based on bone density: Normal bone density: T-score equal to or greater than -1.0 Osteopenia: T-score between -1.0 and -2.5 Osteoporosis: T-score equal to or less than -2.5 The patient does meet the pharmacological treatment recommendations for prevention of osteoporosis. BD/Dexa Bone Density Study IMPRESSION: OSTEOPENIA. Recommend follow-up as clinically warranted. Reading Location: [place] [id number]
== END | disposition home or self-care (01) ==
LOC: OPBD 06:59
PROVIDERS: PCP Internal Medicine; Referring Provider Internal Medicine; Visit Provider Internal Medicine
DX: Z12.31 Encounter for screening mammogram for malignant neoplasm of breast (principal); Z78.0 Asymptomatic menopausal state
CPT/HCPCS: 77063; 77067; 77080